=== PATIENT | male | born 1935 | race Caucasian/White ===

== ENCOUNTER 2017-03-04 18:52 | Observation (INO) | payer MEDICARE, OTHER ==
--- NOTE | 2017-03-04 20:11 | PCM.HP ---
History of Present Illness - Chief Complaint Chief Complaint: right knee pain History of Present Illness: is a 81 year old male pt of Dr. Jonah Tejeda with hx Jidlmdy-Muqsg-Dldlb disease who came in [facility] for pain control of R knee pain. He has a long history of knee pain and has recently been getting fluid drained from the knees intermittently; for th epast 3d he has had exacerbation of R knee pain particularly, with swelling and warmth of the knee. Pain is "30" out of 10. He takes no pain meds at home. His daughter, WHITNEY Angela, found out this evening that he has not slept x 2d and has not been able to get to the bathroom or up to shave x 2-3 days. She called me to discuss and we elected to directely admit him (transported via ambulance) for pain control and possible drainage by Dr. Tejeda in the morning. - Review of Systems Constitutional: Weight Loss (30 lb on recent diabetic diet.) Abdominal/Gastrointestinal: Nausea (with pain) Genitourinary Symptoms: Other (some urinary sx; treated for prostate cancer) Musculoskeletal: Arthralgias, Joint Pain, Joint Swelling Neurological: Dizziness (presyncope, intermittent) All Other Systems: Reviewed and Negative Medications & Allergies Home Medications: Home Medication List Felodipine [Felodipine ER] 10 mg PO DAILY 12/17/13 [History Confirmed 03/04/17] Lansoprazole [Prevacid] 30 mg PO DAILY 12/17/13 [History Confirmed 03/04/17] Benazepril HCl [Lotensin] 20 mg PO DAILY 12/18/13 [History Confirmed 03/04/17] Metoprolol Succinate 100 mg [Toprol Xl 100 MG] 100 mg PO DAILY 12/18/13 [ History Confirmed 03/04/17] Metformin HCl [Glucophage] 500 mg PO BID 03/04/17 [History Confirmed 03/04/17] Allergies/Adverse Reactions: Allergies Allergy/AdvReac Type Severity Reaction Status Date / Time penicillin G Allergy Mild Hives Verified 01/17/16 09:46 Sulfa (Sulfonamide Allergy Mild Hives Verified 01/17/16 09:46 Antibiotics) [Sulfa(Sulfonamide Antibiotics)] - Past Medical History Past Medical History: Yes Neurological History: Peripheral Neuropathy ENT History: No Pertinent History, Cataracts, Other (blind lefteye for years) Cardiac History: Hypertension Respiratory History: No Pertinent History Endocrine Medical History: No Pertinent History Musculoskelatal History: Arthritis GI Medical History: No Pertinent History History: No Pertinent History Pyscho-Social History: No Pertinent History Male Reproductive Disorders: Prostate Problems Comment: pacemaker - Past Surgical History Past Surgical History: Yes Neuro Surgical History: No Pertinent History Cardiac History: Cardiac Catheterization, Pacemaker Respiratory Surgery: No Pertinent History GI Surgical History: Cholecystectomy, Hernia Repair Genitourinary Surgical Hx: No Pertinent History Musculskeletal Surgical Hx: Orthopedic Surgery Male Surgical History: No Pertinent History Other Surgical History: tonsils - Social History Smoking Status: Never smoker Exposure to second hand smoke: No Alcohol: None Drug Use: none Significant Family History: no pertinent family hx - Physical Exam General Appearance: no apparent distress Neurologic Exam: alert, oriented x 3, cooperative, normal mood/affect Eye Exam: eyes nml inspection Ears, Nose, Throat Exam: moist mucous membranes Neck Exam: normal inspection, non-tender, mass (R submandibular soft mass approx 2.5x3 cm, nttp) Respiratory Exam: normal breath sounds, lungs clear, No crackles/rales, No rhonchi, No wheezing Cardiovascular Exam: regular rate/rhythm, normal heart sounds, No murmur Gastrointestinal/Abdomen Exam: soft, normal bowel sounds, No tenderness, No distention Extremity Exam: other (R knee grossly enlarged, quite warm, no erythema, ttp. L knee somewhat enlarged, somewhat warm, no erythema. no lesions bilat.) Skin Exam: normal color, warm, dry Results - Radiology Impressions Radiology Exams & Impressions: Radiology Procedures Category Date Time Status KNEE (1 OR 2 VIEW) Urgent Exams 03/04/17 Ordered Assessment/Plan (1) Knee pain Current Visit: Yes Status: Acute Assessment & Plan: Portable XR, check uric acid, cbc. Pain control tonight, starting with po meds (IV if necessary). suspect acute exacerbation of arthritic pain. 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 Code(s): E11.9 - TYPE 2 DIABETES MELLITUS WITHOUT COMPLICATIONS
[2017-03-04] MEDS ORDERED: MORPHINE SULFATE 10 MG/ML IV PRN (20:14)
[2017-03-04] MEDS ORDERED: ENOXAPARIN SODIUM SQ SCH (20:15)
[2017-03-04] MEDS: OXYCODONE-ACETAMINOPHEN 10-325 PO PRN (20:34)
[2017-03-04] MEDS: Sodium Chloride 0.9% 1000 ML 1,000 ML IV SCH (20:38)
[2017-03-04 20:39] LABS: BASOPHIL % 0.2 % (0.0-0.4); Eosinophil % 0.4 % (0.00-5.0); Granulocytes % 68.9 % (36.0-66.0); Lymphocytes % 20.5 % (24.0-44.0); Mean Cell Volume 96.9 fl (78-100); Mean Platelet Volume 9.8 fl (6-9.5); Platelet Count 139 K/mm3 (150-450); Red Blood Count 3.51 M/mm3 (4.1-5.6); Red Cell Distribution Width 12.7 % (11.5-14.0); White Blood Count 8.1 K/mm3 (4.0-10.5)
[2017-03-04 20:42] LABS: Mean Corpuscular Hemoglobin 32.4 pg (26-32)
[2017-03-04 21:00] LABS: ALBUMIN 3.6 g/dL (3.4-5.0); ALKALINE PHOSPHATASE 46 U/L (46-116); ANION GAP 12.6 MEQ/L (5-15); BLOOD UREA NITROGEN 31 mg/dL (9-20); CHLORIDE 101 mEq/L (98-107); Carbon Dioxide 28.4 mEq/L (21-32); Glucose 165 MG/DL (70-110); Potassium 3.1 mEq/L (3.5-5.1); SGOT/AST 12 U/L (15-37); SODIUM 139 mEq/L (136-145); Total Protein 6.8 gm/dL (6.4-8.2)
[2017-03-04] MEDS: Zofran 4 MG/2 ML VIAL IV PRN (21:01)
[2017-03-04 21:18] LABS: SGPT/ALT 13 U/L (12-78)
[2017-03-04] MEDS ORDERED: MORPHINE SULFATE 2 MG INJ ONE (22:22)
[2017-03-05] MEDS: OXYCODONE-ACETAMINOPHEN 10-325 PO PRN ×4 (01:26→21:14)
[2017-03-05] MEDS ORDERED: MEDICATION INTERVENTION MC SCH (07:15)
[2017-03-05] MEDS ORDERED: XYLOCAINE 1% HCL 20 ML MDV ONE (08:22)
--- NOTE | 2017-03-05 08:33 | XRAY ---
Indication: Knee pain and swelling. Comparison: None AP/crosstable lateral right knee demonstrates mild osteopenia, moderate tricompartmental degenerative changes, nonspecific suprapatellar effusion, fabella, and scattered vascular calcifications. No other bony, articular, or soft tissue abnormalities.
[2017-03-05 09:48] LABS: Bacteria FEW /HPF (NEGATIVE); Bilirubin NEGATIVE (NEGATIVE); Blood 250 Ery/ul (0-5); COMPLETE URINE MICROSCOPIC? YES; Collection Type VOID; Epithelial Cells RARE /HPF (FEW); Glucose NEGATIVE (NEGATIVE); Leukocyte Esterase TRACE (NEGATIVE); WBC 0-2 /HPF (0-5)
[2017-03-05] MEDS: Lotensin 10 MG PO SCH (09:49)
[2017-03-05] MEDS: Toprol Xl 100 MG PO SCH (09:49)
[2017-03-05] MEDS: Klor Con 10 MEQ PO SCH ×3 (09:49→21:14)
[2017-03-05] MEDS: Protonix 40MG Tablet PO SCH (09:49)
[2017-03-05] MEDS ORDERED: NON-FORMULARY ITEM (Benazepril Hcl [Lotensin] 20 MG) PO SCH (10:00)
[2017-03-05] MEDS ORDERED: NON-FORMULARY ITEM (Lansoprazole [Prevacid] 30 MG) PO SCH (10:00)
[2017-03-05] MEDS ORDERED: FELODIPINE 10 MG PO SCH (10:00)
[2017-03-05] MEDS ORDERED: PATIENT OWN MEDICATION PO SCH ×2 (12:00→17:00)
[2017-03-05] MEDS: Zofran 4 MG/2 ML VIAL IV PRN (13:49)
[2017-03-05] MEDS: Sodium Chloride 0.9% 1000 ML 1,000 ML IV SCH (13:57)
--- NOTE | 2017-03-05 18:10 | PCM.NOTE ---
Date and Time: 03/05/171804 Subjective Assessment: unable to walk severe pain in his knees for 2 days prior to presentation unable to bear weight or get out of bed light touch causes severe pain no fever no chills. I drained both his knees this am at 08:30 with 80 mL off left knee and 110 mL off the right knee. 40 mg of kenalog and 2 mL of lidocaine was placed in the right knee. Since then he has still had the pain but has been able to move them more. He was unable to get out of the bed without assist of 2 to the commode. He was not able to bear weight on the legs do to the pain. 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 Objective Exam General Appearance: no apparent distress, alert Neurologic Exam: alert, oriented x 3, cooperative, normal mood/affect, nml cerebellar function, sensation nml, No motor deficits Skin Exam: normal color, warm, dry Eye Exam: PERRL, EOMI, eyes nml inspection Ears, Nose, Throat Exam: normal ENT inspection, pharynx normal, moist mucous membranes Neck Exam: normal inspection, non-tender, supple, full range of motion Respiratory Exam: normal breath sounds, lungs clear, No respiratory distress Cardiovascular Exam: regular rate/rhythm, normal heart sounds Gastrointestinal/Abdomen Exam: soft, No tenderness, No mass Extremity Exam: other (bilateral knees tender to light palpation no redness mild warmth) Back Exam: normal inspection, normal range of motion, No CVA tenderness, No vertebral tenderness Male Genitalia Exam: deferred Rectal Exam: deferred OBJECTIVE DATA Vital Signs: Vital Signs - 24 hr Temp Pulse Resp BP Pulse Ox 03/05/17 15:50 98.3 F 58 L 18 161/71 91 L 03/05/17 14:58 93 L 03/05/17 11:48 98.1 F 61 18 169/72 93 L 03/05/17 10:39 96 03/05/17 07:12 98.2 F 61 18 172/77 97 03/05/17 06:42 98 03/05/17 03:55 98.5 F 62 18 119/55 99 03/04/17 23:41 98.7 F 62 19 111/56 94 L 03/04/17 22:35 69 16 93 L 03/04/17 22:15 93 L 03/04/17 20:19 98.9 F 66 19 105/51 92 L Oxygen-Last 24 hours O2 Percentage 2 Liters = 28% O2 Percentage 2 Liters = 28% O2 Percentage 2 Liters = 28% O2 Percentage 2 Liters = 28% Pain Assessment - Last Documented Pain Intensity 9 Pain Scale Used 0-10 Pain Scale Intake and Output: Intake & Output 03/03/17 03/04/17 03/05/17 03/06/17 11:59 11:59 11:59 11:59 Intake Total 963 Balance 963 Weight 85.757 kg 85.757 kg Lab Results: Accuchecks Date 03/05/17 Date 03/05/17 Date 03/05/17 Date 03/04/17 Time 16:30 Time 11:30 Time 07:30 Time 20:00 Accucheck Value: 226 Accucheck Value: 169 Accucheck Value: 139 Accucheck Value: 169 Lab Results-Last 24 Hours 03/04/17 03/04/17 03/05/17 Range/Units 20:30 20:30 02:21 WBC 8.1 (4.0-10.5) K/mm3 RBC 3.51 L (4.1-5.6) M/mm3 Hgb 11.4 L (12.5-18.0) gm/dl Hct 34.0 L (42-50) % MCV 96.9 (78-100) fl MCH 32.4 H (26-32) pg MCHC 33.5 (32-36) g/dl RDW 12.7 (11.5-14.0) % Plt Count 139 L (150-450) K/mm3 MPV 9.8 H (6-9.5) fl Gran % 68.9 H (36.0-66.0) % Lymphocytes % 20.5 L (24.0-44.0) % Monocytes % 10.0 (0.0-12.0) % Eosinophils % 0.4 (0.00-5.0) % Basophils % 0.2 (0.0-0.4) % Basophils # 0.02 (0-0.4) Sodium 139 (136-145) mEq/L Potassium 3.1 L (3.5-5.1) mEq/L Chloride 101 (98-107) mEq/L Carbon Dioxide 28.4 (21-32) mEq/L Anion Gap 12.6 (5-15) MEQ/L BUN 31 H (9-20) mg/dL Creatinine 1.16 (0.55-1.30) mg/dl Estimated GFR > 60 ML/MIN Glucose 165 H (70-110) MG/DL Hemoglobin A1c 5.7 (4.5-6.2) Uric Acid 8.2 H (3.5-7.2) mg/dL Calcium 9.4 (8.5-10.1) mg/dL Total Bilirubin 1.00 (0.2-1.0) mg/dL AST 12 L (15-37) U/L ALT 13 (12-78) U/L Alkaline Phosphatase 46 (46-116) U/L Serum Total Protein 6.8 (6.4-8.2) gm/dL Albumin 3.6 (3.4-5.0) g/dL Ur Collection Type Urine Color (YELLOW) Urine Appearance (CLEAR) Urine pH (5-6) Ur Specific [place] (1.005-1.025) Urine Protein (Negative) Urine Ketones (NEGATIVE) Urine Blood (0-5) Oscar/ul Urine Nitrite (NEGATIVE) Urine Bilirubin (NEGATIVE) Urine Urobilinogen (0-1) mg/dL Ur Leukocyte Esterase (NEGATIVE) Urine Microscopic RBC (0-2) /HPF Urine Microscopic WBC (0-5) /HPF Ur Epithelial Cells (FEW) /HPF Urine Bacteria (NEGATIVE) /HPF Urine Glucose (NEGATIVE) mg/dL Specimen Received 03/05/17 Range/Units 08:55 WBC (4.0-10.5) K/mm3 RBC (4.1-5.6) M/mm3 Hgb (12.5-18.0) gm/dl Hct (42-50) % MCV (78-100) fl MCH (26-32) pg MCHC (32-36) g/dl RDW (11.5-14.0) % Plt Count (150-450) K/mm3 MPV (6-9.5) fl Gran % (36.0-66.0) % Lymphocytes % (24.0-44.0) % Monocytes % (0.0-12.0) % Eosinophils % (0.00-5.0) % Basophils % (0.0-0.4) % Basophils # (0-0.4) Sodium (136-145) mEq/L Potassium (3.5-5.1) mEq/L Chloride (98-107) mEq/L Carbon Dioxide (21-32) mEq/L Anion Gap (5-15) MEQ/L BUN (9-20) mg/dL Creatinine (0.55-1.30) mg/dl Estimated GFR ML/MIN Glucose (70-110) MG/DL Hemoglobin A1c (4.5-6.2) Uric Acid (3.5-7.2) mg/dL Calcium (8.5-10.1) mg/dL Total Bilirubin (0.2-1.0) mg/dL AST (15-37) U/L ALT (12-78) U/L Alkaline Phosphatase (46-116) U/L Serum Total Protein (6.4-8.2) gm/dL Albumin (3.4-5.0) g/dL Ur Collection Type VOID Urine Color YELLOW (YELLOW) Urine Appearance CLEAR (CLEAR) Urine pH 5.0 (5-6) Ur Specific [place] 1.025 (1.005-1.025) Urine Protein TRACE (Negative) Urine Ketones NEGATIVE (NEGATIVE) Urine Blood 250 (0-5) Oscar/ul Urine Nitrite NEGATIVE (NEGATIVE) Urine Bilirubin NEGATIVE (NEGATIVE) Urine Urobilinogen NORMAL (0-1) mg/dL Ur Leukocyte Esterase TRACE (NEGATIVE) Urine Microscopic RBC 15-25 (0-2) /HPF Urine Microscopic WBC 0-2 (0-5) /HPF Ur Epithelial Cells RARE (FEW) /HPF Urine Bacteria FEW (NEGATIVE) /HPF Urine Glucose NEGATIVE (NEGATIVE) mg/dL Specimen Received 03/05/17 0855 Radiology Exams: Radiology Procedures Category Date Time Status KNEE (1 OR 2 VIEW) Urgent Exams 03/04/17 Completed Assessment/Plan (1) Knee pain Current Visit: Yes Status: Acute Qualifiers: Chronicity: acute Laterality: bilateral Qualified Code(s): M25.561 - Pain in right knee; M25.562 - Pain in left knee Assessment & Plan: suspected gout flair aspiration bilateral sent for culture, cell count and crystals and results still pending the fluid did not look purulent he has no fever and no elevated wbc he is unable to walk and unable to care for himself at home in current state and no one to provide 24 hour care in current state He was given 40 mg kenalog intrarticular on the right knee after the aspiration continue to monitor symptoms start naproxen 500 bid as well with protonix stomach protection he is on iv pain mediation due to severity of pain now start senna for constipation prevention PT eval and treat Code(s): M25.569 - PAIN IN UNSPECIFIED KNEE (2) Inability to ambulate due to knee Current Visit: Yes Status: Acute Code(s): R26.2 - DIFFICULTY IN WALKING, NOT ELSEWHERE CLASSIFIED (3) HTN (hypertension) Current Visit: Yes Status: Chronic Qualifiers: Hypertension type: essential hypertension Qualified Code(s): I10 - Essential (primary) hypertension Code(s): I10 - ESSENTIAL (PRIMARY) HYPERTENSION (4) Diabetes mellitus Current Visit: Yes Status: Chronic Qualifiers: Diabetes mellitus type: type 2 Diabetes mellitus complication status: without complication Diabetes mellitus longterm insulin 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
[2017-03-05] MEDS: Naprosyn 500 MG PO SCH ×2 (18:17→19:16)
[2017-03-05] MEDS: NovoLOG Insulin SQ PRN (21:39)
[2017-03-05] MEDS ORDERED: ENOXAPARIN SODIUM SQ SCH (22:00)
[2017-03-05] MEDS ORDERED: Senokot-S Tablet PO SCH (22:00)
[2017-03-06] MEDS: Sodium Chloride 0.9% 1000 ML 1,000 ML IV SCH (00:23)
[2017-03-06 05:36] LABS: Mean Cell Volume 97.1 fl (78-100); Mean Corpuscular Hemoglobin 32.6 pg (26-32); Mean Platelet Volume 10.6 fl (6-9.5); Platelet Count 130 K/mm3 (150-450); Red Cell Distribution Width 12.4 % (11.5-14.0); White Blood Count 6.7 K/mm3 (4.0-10.5)
[2017-03-06 05:54] LABS: ANION GAP 11.7 MEQ/L (5-15); BLOOD UREA NITROGEN 39 mg/dL (9-20); CHLORIDE 103 mEq/L (98-107); Glucose 153 MG/DL (70-110); Potassium 4.3 mEq/L (3.5-5.1); SODIUM 140 mEq/L (136-145)
[2017-03-06 06:59] VITALS: O2SAT 94
[2017-03-06 08:17] LABS: Platelet Estimate NORMAL (NORMAL); Total Cells Counted 100
--- NOTE | 2017-03-06 08:23 | OP ---
SURGERY DATE/TIME 03/05/2017829 PROCEDURE: Bilateral knee aspiration. SURGEON: Dr. Chalo Tejeda INDICATIONS: Bilateral knee acute swelling and pain two days onset. Informed consent was obtained from the patient including risk of infection, bleeding and pain. DESCRIPTION OF PROCEDURE AND FINDINGS: The left knee was cleaned with alcohol and subcutaneous lidocaine 1 ml was used for local anesthesia. . Iodine was used in triplicate to clean the area. A 21 gauge 1.5 inch needle with 25 cc syringe was used for insertion in the superior lateral to aspirate from the suprapatellar space. There was immediate return of yellow synovial fluid. 80 cc in total was withdrawn from this knee. The fluid was sent in sterile specimen cup for culture and cell count differential and crystals. He tolerated the procedure well with no complications. The right knee was then prepped with alcohol and then subcutaneous lidocaine 1 ml was used for local anesthesia. Iodine was used in triplicate to clean the area. A 21 gauge 1.5 inch new needle was used for insertion to superior lateral to patellar space with rapid return of yellow synovial fluid with a total of 110 ml removed with no complication and sent for cell count, culture, differential and crystals as well in separate sterile specimen cup. The needle was then exchanged and 2 cc of lidocaine and 40 mg of Kenalog were injected to the joint space. The patient tolerated the procedure well and no immediate complications. There was no blood loss.
[2017-03-06] MEDS: Lotensin 10 MG PO SCH (08:35)
[2017-03-06] MEDS: Naprosyn 500 MG PO SCH (08:35)
[2017-03-06] MEDS: Klor Con 10 MEQ PO SCH ×2 (08:35→14:11)
[2017-03-06] MEDS: Toprol Xl 100 MG PO SCH (08:35)
[2017-03-06] MEDS: Protonix 40MG Tablet PO SCH (08:36)
[2017-03-06 10:46] LABS: Erythrocyte Sedimentation Rate 52 mm/hr (0-15)
[2017-03-06] MEDS: NovoLOG Insulin SQ PRN (11:53)
[2017-03-06 11:58] VITALS: BP 141/65; PULSE 62
--- NOTE | 2017-03-07 07:42 | PCM.DS ---
Discharge Summary Date of Admission: 03/04/17 19:27 Date of Discharge: 03/06/17 Admitting Physician: CORNELL MORENO Primary Care Provider: KAYLENE TSE Allergies Allergies penicillin G Allergy (Mild, Verified 01/17/16 09:46) [facility] Sulfa (Sulfonamide Antibiotics) [Sulfa(Sulfonamide Antibiotics)] Allergy (Mild, Verified 01/17/16 09:46) [facility] Summary - Hospital Course Hospital Course: Mr. Meyer lives at home with his and was unable to ambulate, or transfer for 2 days due to pain in the knee on the right. he did not eat or get up to get to the restroom. His daughter called Dr. Moreno who direct admitted him to the hospital on 03/04/17. He required significant narcotics to control his pain and was unable to bear weight on his legs and any movement in the bed was incredibly painful. he had no fever or redness did have some warmth in the knees bilaterally. I evaluated him the am of 03/05 and his knees had very large effusions he had remained afebrile and the knees were very tender to palpation. They were both aspirated and sent for culture, cell count and crystals. The right knee had 80cc drained and the left 110 cc drained of clear normal appearing synovial fluid. the right knee was then injected with 40 mg of kenalog on 03/05. He was still requiring assist of 2 on 03/05 but on 03/06 woke up with no pain in the knees was able to bear weight and transfer with minimal assistance. He was discharged home with his daughter who is working on living arrangments in the intermediate. the culture is no growth of the knee but the cell count and crystals is still pending. - Vitals & Intake/Output Vital Signs: Vital Signs Temperature 99.0 F 03/06/17 11:58 Pulse Rate 62 03/06/17 11:58 Respiratory Rate 18 03/06/17 11:58 Blood Pressure 141/65 03/06/17 11:58 O2 Sat by Pulse Oximetry 94 L 03/06/17 11:58 Oxygen-Last Documented O2 Percentage 2 Liters = 28% Intake & Output: Intake & Output 03/04/17 03/05/17 03/06/17 03/07/17 11:59 11:59 11:59 11:59 Intake Total 548 1016 Output Total 450 Balance 548 566 Weight 85.757 kg 85.757 kg - Lab Result Diagrams: 03/06/17 05:10 03/06/17 05:10 Lab Results-Last 24 Hrs: Accuchecks Accucheck Value: 216 Lab Results-Last 24 Hours 03/06/17 Range/Units 05:10 Segmented Neutrophils 79 H (36.-66.) % Lymphocytes (Manual) 16 L (24-44) % Monocytes (Manual) 5 (0.0-12.0) % Differential Comment NORMAL Platelet Estimate NORMAL (NORMAL) ESR 52 H (0-15) mm/hr Micro Results-Entire Visit: Microbiology 03/05/17 08:46 - Final Urine, Void <10K NORMAL SKIN HOLLIE PROBABLE SKIN CONTAMINANT 03/05/17 09:50 Gram Stain - Final Synovial Fluid Wound Culture - Preliminary NO GROWTH TO DATE 03/05/17 09:45 Gram Stain - Final Synovial Fluid Wound Culture - Preliminary NO GROWTH TO DATE Accuchecks Accucheck Value: 216 - Procedures and Test Procedures and Tests throughout Hospitalization: Therapy Orders & Screens 03/04/17 21:01 PT Screen per Nursing Assess Comment: Protocol Order Physician Instructions: Greater than 3 points order PT Admission Screenin Reason For Exam: Triggered on Admission Diagnosis: rt knee pain Open Wound/Cellutlitis/Pressure Ulcers: No Acute Fx/ORIF/Change in wt bearing status: No Severe MUSCULOSKELETAL pain: Yes ADL Dysfunction: No Acute CVA w/Hemiparesis/Hemiplegia: No Decreased Functional Mobility/Strength: Yes Sprain/Strain: No Acute Post-op Mobility Dysfunction: No Total Points: 6 03/04/17 22:33 Oxygen NASAL CANNULA 2 lpm Comment: 2LNC TO KEEP O2 SATURATION >92% Diagnosis: rt knee pain 03/05/17 08:56 OT Screen per Nursing Assess ONCE Comment: Protocol Order Physician Instructions: Greater than 3 points order OT Admission Screening Reason For Exam: Triggered on Admission Diagnosis: rt knee pain Open Wound/Cellutlitis/Pressure Ulcers: No Acute Fx/ORIF/Change in wt bearing status: No Severe MUSCULOSKELETAL pain: Yes ADL Dysfunction: No Acute CVA w/Hemiparesis/Hemiplegia: No Decreased Functional Mobility/Strength: Yes Sprain/Strain: No Acute Post-op Mobility Dysfunction: No Total Points: 6 03/05/17 15:05 PT Eval & Treat (MD Order) ROUTINE Evaluate: Yes Treat: Yes Reason for Eval:: knee pain - inability to walk Diagnosis: rt knee pain Discharge Exam General Appearance: no apparent distress Neurologic Exam: alert, oriented x 3, cooperative Skin Exam: warm, dry, No rash Eye Exam: pale conjunctivae, No scleral icterus Ears, Nose, Throat Exam: moist mucous membranes Neck Exam: non-tender, supple Respiratory Exam: lungs clear Cardiovascular Exam: regular rate/rhythm, normal heart sounds, edema (trace omayra LE) Extremity Exam: joint swelling, tenderness (bilateral knees still with large effusions no warmth or redness and nonpainful to palpation today and has improved range of motion) Final Diagnosis/Problem List - Final Discharge Diagnosis/Problem (1) Knee pain Status: Acute Assessment & Plan: suspected gout flair improved with the aspiration and kenalog injection await crystal study and after improvement f/u in office to start allopurinol therapy (2) Inability to ambulate due to knee Status: Acute (3) HTN (hypertension) Status: Chronic (4) Diabetes mellitus Status: Chronic - Discharge Disposition: Home, Self-Care Condition: Good Prescriptions: No Action Felodipine [Felodipine ER] 10 mg PO DAILY Lansoprazole [Prevacid] 30 mg PO DAILY Benazepril HCl [Lotensin] 20 mg PO DAILY Metoprolol Succinate 100 mg [Toprol Xl 100 MG] 100 mg PO DAILY Metformin HCl [Glucophage] 500 mg PO BID Instructions: Gout, Knee Pain Follow up with: KAYLENE TSE [Primary Care Provider] - 03/13/17 3:15 pm Forms: Discharge Instructions, Patient Portal Information
[2017-03-07 10:04] LABS: Body Fluid Type? Synovial Fluid
[2017-03-07 10:04] LABS: Body Fluid Type? Synovial Fluid
== END 2017-03-06 15:25 | disposition home or self-care (01) ==
LOC: MED SURG 19:27
PROVIDERS: ADMIT Family Medicine; ATTEND Family Medicine
PROC: 0S9D3ZZ Drainage of Left Knee Joint, Percutaneous Approach (ICD-10-PCS; principal; 2017-03-05)
PROC: 0S9C3ZZ Drainage of Right Knee Joint, Percutaneous Approach (ICD-10-PCS; 2017-03-05)
DX: M25.561 Pain in right knee (principal); M25.562 Pain in left knee; R26.2 Difficulty in walking, not elsewhere classified; I10 Essential (primary) hypertension; E11.9 Type 2 diabetes mellitus without complications; Z79.4 Long term (current) use of insulin; Z79.899 Other long term (current) drug therapy; G62.9 Polyneuropathy, unspecified; Z95.0 Presence of cardiac pacemaker
CPT/HCPCS: 36415; 73560; 80048; 80053; 81000; 82962; 83036; 84550; 85025; 85652; 87070; 87086; 89050; 89051; 89060; 93268; 94762; G0378; J1650; J2270; J2405; A9270-GY

== ENCOUNTER 2017-07-07 16:50 | Emergency (ER) | payer MEDICARE, OTHER ==
[2017-07-07] MEDS ORDERED: SUBLIMAZE 100 MCG/2 ML IV ONE (17:04)
--- NOTE | 2017-07-07 17:10 | ERPHSYRPT ---
- History of Present Illness Source: patient, EMS Patient Subjective Stated Complaint: pt states yesterday he had lower abd pain but today it is back pain, no fall or injury, no nausea or vomiting, had bm today Triage Nursing Assessment: pt arrived per ambulance, ems states he was up and walking at house, alert, resp easy, skin w/d pink, moves all ext well Timing/Duration: yesterday Back Pain Location: lumbar spine Severity of Pain-Max: severe Severity of Pain-Current: moderate Hx Tetanus, Diphtheria Vaccination/Date Given: Yes (2014) Hx Influenza Vaccination/Date Given: No Hx Pneumococcal Vaccination/Date Given: No Immunizations Up to Date: Yes <JASEN GONZALEZ - Last Filed: 07/07/17 18:08> <ADRIANA GASTON - Last Filed: 07/07/17 20:04> - History of Present Illness Time Seen by Provider: 07/07/17 16:54 Physician History: CC: low back pain Hx: 81 y/o patient of Dr Devine brought to ER with low back pain, worse since last night. Started with some low abd pain and some constipation. No fever or chills. Normal urination. No hx of AAA. He has a pacemaker. He has HHC. and daughter en route to the hospital. He has hx of gout. Pain is aching, sharp. No hematuria noted. Not apparently on blood thinners. (JASEN GONZALEZ) Allergies/Adverse Reactions: penicillin G Allergy (Mild, Verified 07/07/17 17:07) Hives Sulfa (Sulfonamide Antibiotics) [Sulfa(Sulfonamide Antibiotics)] Allergy (Mild, Verified 07/07/17 17:07) Hives Home Medications: Felodipine [Felodipine ER] 10 mg PO DAILY 12/17/13 [History] Lansoprazole [Prevacid] 30 mg PO DAILY 12/17/13 [History] Benazepril HCl [Lotensin] 20 mg PO DAILY 12/18/13 [History] Metoprolol Succinate 100 mg [Toprol Xl 100 MG] 100 mg PO DAILY 12/18/13 [ History] Metformin HCl [Glucophage] 500 mg PO BID 03/04/17 [History] - Review of Systems Constitutional: No Fever, No Chills Cardiac: No Chest Pain Abdominal/Gastrointestinal: Abdominal Pain, No Nausea, No Vomiting, No Diarrhea Genitourinary Symptoms: No Dysuria, No Hematuria, No Flank Pain Musculoskeletal: Back Pain, No Fall, No Injury, No Joint Pain Skin: No Rash Neurological: No Focal Weakness, No Headache All Other Systems: Reviewed and Negative <JASEN GONZALEZ - Last Filed: 07/07/17 18:08> - Past Medical History Pertinent Past Medical History: Yes Neurological History: Peripheral Neuropathy ENT History: No Pertinent History, Cataracts, Other Cardiac History: Hypertension Respiratory History: No Pertinent History Endocrine Medical History: No Pertinent History Musculoskeletal History: Arthritis GI Medical History: No Pertinent History History: No Pertinent History Psycho-Social History: No Pertinent History Male Reproductive Disorders: Prostate Problems Other Medical History: pacemaker - Past Surgical History Past Surgical History: Yes Neuro Surgical History: No Pertinent History Cardiac: Cardiac Catheterization, Pacemaker Respiratory: No Pertinent History Gastrointestinal: Cholecystectomy, Hernia Repair Genitourinary: No Pertinent History Musculoskeletal: Orthopedic Surgery Male Surgical History: No Pertinent History Other Surgical History: tonsils - Social History Smoking Status: Former smoker Exposure to second hand smoke: No Alcohol Use: None Drug Use: none Patient Lives Alone: No Significant Family History: no pertinent family hx <GONZALEZJASEN - Last Filed: 07/07/17 18:08> - Physical Exam General Appearance: alert Eye Exam: PERRL/EOMI Ears, Nose, Throat Exam: normal ENT inspection, moist mucous membranes Neck Exam: normal inspection, supple Respiratory Exam: normal breath sounds Cardiovascular Exam: regular rate/rhythm Gastrointestinal Exam: soft, tenderness (mild suprapubic) Male Genetalia Exam: normal genitalia Back Exam: normal inspection, No vertebral tenderness Extremity Exam: normal inspection Neurologic Exam: alert, oriented x 3, cooperative, 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 tested, sensation nml, No motor deficits Skin Exam: warm, dry, No rash SpO2 Interpretation: normal SpO2: 96 Oxygen Delivery: Room Air <CARLOSBRAVO - Last Filed: 07/07/17 18:08> - Nursing Vital Signs Nursing Vital Signs: Initial Vital Signs Temperature 99.8 F 07/07/17 16:51 Pulse Rate 73 07/07/17 16:51 Respiratory Rate 16 07/07/17 16:51 Blood Pressure 137/61 07/07/17 16:51 O2 Sat by Pulse Oximetry 96 07/07/17 16:51 Pain Scale Pain Intensity [Back] 5 Pain Intensity 3 - Course Nursing assessment & vital signs reviewed: Yes EKG Interpreted by Me: RATE (70 pacemaker rhythm) <JASEN GONZALEZ - Last Filed: 07/07/17 18:08> - CT Exams Abdomen/Pelvis CT Interpretation: Other (large hiatal hernia, and small umbilical hernia, fecal stasis, mild diverticulitis, no obstruction.) <ADRIANA GASTON - Last Filed: 07/07/17 20:04> Ordered Tests: Active Orders 24 hr Category Date Time Status Clean Catch Urine Specimen STAT Care 07/07/17 17:04 Active EKG-ER Only STAT Care 07/07/17 17:04 Active IV Insertion STAT Care 07/07/17 17:04 Active ABDOMEN AND PELVIS W/0 CONTRAS [CT] Stat Exams 07/07/17 17:05 Taken CBC W DIFF Stat Lab 07/07/17 17:38 Completed CMP Stat Lab 07/07/17 17:38 Completed CULTURE,URINE Stat Lab 07/07/17 17:50 Received LIPASE Stat Lab 07/07/17 17:38 Completed UA W/ MICROSCOPIC Stat Lab 07/07/17 17:50 Completed Medication Summary Discontinued Medications Generic Name Dose Route Start Last Admin Trade Name Freq PRN Reason Stop Dose Admin Fentanyl Citrate 25 mcg 07/07/17 17:04 07/07/17 17:34 Sublimaze 100 Mcg/2 Ml IV 07/07/17 17:05 25 mcg STAT ONE Administration Fentanyl Citrate Confirm 07/07/17 17:31 Sublimaze 100 Mcg/2 Ml Administered 07/07/17 17:32 Dose 100 mcg .ROUTE .STK-MED ONE Potassium Chloride 20 meq 07/07/17 19:46 07/07/17 19:55 Potassium Chloride 20 Meq Powder For Oral Rahel PO 07/07/17 19:47 20 meq NOW ONE Administration Potassium Chloride Confirm 07/07/17 19:51 Potassium Chloride 20 Meq Powder For Oral Rahel Administered 07/07/17 19:52 Dose 20 meq .ROUTE .STK-MED ONE Lab/Rad Data: Laboratory Result Diagrams 07/07/17 17:38 07/07/17 17:38 Laboratory Results 07/07/17 07/07/17 07/07/17 Range/Units 17:50 17:38 17:38 WBC 8.4 (4.0-10.5) K/mm3 RBC 3.50 L (4.1-5.6) M/mm3 Hgb 11.3 L (12.5-18.0) gm/dl Hct 34.0 L (42-50) % MCV 97.1 (78-100) fl MCH 32.2 H (26-32) pg MCHC 33.2 (32-36) g/dl RDW 12.8 (11.5-14.0) % Plt Count 178 (150-450) K/mm3 MPV 9.8 H (6-9.5) fl Gran % 75.1 H (36.0-66.0) % Lymphocytes % 16.3 L (24.0-44.0) % Monocytes % 7.3 (0.0-12.0) % Eosinophils % 0.8 (0.00-5.0) % Basophils % 0.5 (0.0-0.4) % Basophils # 0.04 (0-0.4) Sodium 139 (136-145) mEq/L Potassium 3.0 L* (3.5-5.1) mEq/L Chloride 102 (98-107) mEq/L Carbon Dioxide 27.1 (21-32) mEq/L Anion Gap 12.5 (5-15) MEQ/L BUN 22 H (9-20) mg/dL Creatinine 1.22 (0.55-1.30) mg/dl Estimated GFR > 60 ML/MIN Glucose 182 H (70-110) MG/DL Calcium 8.8 (8.5-10.1) mg/dL Total Bilirubin 0.40 (0.2-1.0) mg/dL AST 13 L (15-37) U/L ALT 20 (12-78) U/L Alkaline Phosphatase 67 (46-116) U/L Serum Total Protein 6.5 (6.4-8.2) gm/dL Albumin 3.1 L (3.4-5.0) g/dL Lipase 201 (73-393) U/L Ur Collection Type VOID Urine Color YELLOW (YELLOW) Urine Appearance CLEAR (CLEAR) Urine pH 5.0 (5-6) Ur Specific [place] 1.020 (1.005-1.025) Urine Protein TRACE (Negative) Urine Ketones NEGATIVE (NEGATIVE) Urine Blood 50 (0-5) Oscar/ul Urine Nitrite NEGATIVE (NEGATIVE) Urine Bilirubin NEGATIVE (NEGATIVE) Urine Urobilinogen NORMAL (0-1) mg/dL Ur Leukocyte Esterase NEGATIVE (NEGATIVE) Urine Microscopic RBC 2-5 (0-2) /HPF Urine Microscopic WBC 2-5 (0-5) /HPF Ur Epithelial Cells MODERATE (FEW) /HPF Urine Bacteria MODERATE (NEGATIVE) /HPF Urine Mucus MANY (NEGATIVE) /HPF Urine Culture Reflexed YES (NO) Urine Glucose NEGATIVE (NEGATIVE) mg/dL Specimen Received 07/07/17 0824 <JASEN GONZALEZ - Last Filed: 07/07/17 18:08> - Progress Progress: improved Discussed with Dr.: Sybil Will see patient in: office <ADRIANA GASTON - Last Filed: 07/07/17 20:04> - Progress Progress Note: 07/07/17 17:[address] to rule out AAA or renal stone disease. 07/07/17 18:09 CT and labs pending. and daughter at bedside. Report to Dr Gaston for further care and disposition. (JASEN GONZALEZ) 07/07/17 19:57 I discussed the results with patient and his family, they agreed to take him home and follow up with Dr Devine in his office this week. Dr Devine was also called, informed about the results, he also agreed with the plan to discharge him and treat as outpatient. Pt has been afebrile and stable, without severe pain or distress. (ADRIANA GASOTN) <JASEN GONZALEZ - Last Filed: 07/07/17 18:08> - Departure Time of Disposition: 19:58 Departure Disposition: Home Critical Care Time: No <ADRIANA GASTON - Last Filed: 07/07/17 20:04> - Departure Clinical Impression: Diverticulitis, Hypokalemia Condition: Stable Referrals: KAYLENE TSE [Primary Care Provider] - Instructions: Low Back Pain, Diverticulitis, Hypokalemia Additional Instructions: Rest x 2-3 days, apply moist heat to back, continue liquid diet, return if severe pain, vomiting, fever> 101 F! Follow up with PCP in 2-3 days! Prescriptions: Tramadol HCl [Ultram 50 mg Tablet] 50 mg PO Q6HPRN PRN 5 Days #10 tablet PRN Reason: Pain Levofloxacin [Levaquin] 1 tab PO DAILY 10 Days #10 tablet Metronidazole 500 mg [Flagyl 500 MG] 500 mg PO TID 10 Days #30 tablet
[2017-07-07] MEDS ORDERED: SUBLIMAZE 100 MCG/2 ML ONE (17:31)
[2017-07-07 17:43] LABS: BASOPHIL % 0.5 % (0.0-0.4); Eosinophil % 0.8 % (0.00-5.0); Granulocytes % 75.1 % (36.0-66.0); Lymphocytes % 16.3 % (24.0-44.0); Mean Cell Volume 97.1 fl (78-100); Mean Platelet Volume 9.8 fl (6-9.5); Monocytes % 7.3 % (0.0-12.0); Platelet Count 178 K/mm3 (150-450); Red Cell Distribution Width 12.8 % (11.5-14.0); White Blood Count 8.4 K/mm3 (4.0-10.5)
[2017-07-07 17:44] LABS: Mean Corpuscular Hemoglobin 32.2 pg (26-32)
[2017-07-07 18:09] LABS: Collection Type VOID
[2017-07-07 18:10] LABS: ADD URINE CULTURE? YES (NO); Bacteria MODERATE /HPF (NEGATIVE); Bilirubin NEGATIVE (NEGATIVE); Blood 50 Ery/ul (0-5); COMPLETE URINE MICROSCOPIC? YES; Epithelial Cells MODERATE /HPF (FEW); Glucose NEGATIVE (NEGATIVE); Leukocyte Esterase NEGATIVE (NEGATIVE); Mucus MANY /HPF (NEGATIVE)
[2017-07-07 18:15] LABS: ALBUMIN 3.1 g/dL (3.4-5.0); ALKALINE PHOSPHATASE 67 U/L (46-116); ANION GAP 12.5 MEQ/L (5-15); BLOOD UREA NITROGEN 22 mg/dL (9-20); CHLORIDE 102 mEq/L (98-107); Carbon Dioxide 27.1 mEq/L (21-32); Glucose 182 MG/DL (70-110); LIPASE 201 U/L (73-393); SGOT/AST 13 U/L (15-37); SGPT/ALT 20 U/L (12-78); SODIUM 139 mEq/L (136-145); Total Protein 6.5 gm/dL (6.4-8.2)
[2017-07-07 18:58] VITALS: O2SAT 94
[2017-07-07] MEDS ORDERED: POTASSIUM CHLORIDE 20 MEQ POWDER FOR ORAL SOL PO ONE (19:46)
[2017-07-07] MEDS ORDERED: POTASSIUM CHLORIDE 20 MEQ POWDER FOR ORAL SOL ONE (19:51)
[2017-07-07] MEDS ORDERED: Levofloxacin 250MG Tablet PO ONE (19:55)
[2017-07-07] MEDS ORDERED: ULTRAM 50 MG PO ONE (19:55)
[2017-07-07] MEDS ORDERED: Flagyl 500 MG PO ONE (19:55)
[2017-07-07 19:58] VITALS: BP 128/62; PULSE 79
[2017-07-07] MEDS ORDERED: Levofloxacin 250MG Tablet ONE (20:00)
[2017-07-07] MEDS ORDERED: ULTRAM 50 MG ONE (20:00)
[2017-07-07] MEDS ORDERED: Cipro 500 MG ONE (20:00)
[2017-07-07] MEDS ORDERED: Flagyl 500 MG ONE (20:02)
--- NOTE | 2017-07-08 08:37 | XRAY ---
Indication: Abdominal pain. Multiple contiguous axial images obtained through the abdomen and pelvis without contrast as ordered. Comparison: None Lung bases demonstrates mild bibasilar atelectasis/scarring and right posterior gutter calcified granuloma. Heart is not enlarged. There is a moderate-sized hiatal hernia with partial intrathoracic stomach. Noncontrasted stomach and bowel loops appear nonobstructed. Moderate diffuse scattered colonic fecal debris throughout. Scattered sigmoid diverticulosis with minimal distal stranding favoring diverticulitis. No free fluid/air. Calcified splenic granulomas and previous cholecystectomy. There are multiple hepatic cysts, largest 6 cm. Also multiple bilateral renal cysts, largest right kidney measuring 12 cm. Nonobstructing right renal micro-calculi, largest 7 mm. Remaining liver, pancreas, spleen, adrenal glands, kidneys, ureters, and bladder appear unremarkable for noncontrast exam. Moderate aortoiliac calcifications without AAA. Osseous structures demonstrates moderate/advanced multilevel degenerative spondylosis. 6 mm L4 spondylolisthesis. Tiny fatty umbilical hernia. Impression: 1. Sigmoid diverticulosis. Small focus of minimal/early diverticulitis. 2. Fecal stasis without obstruction. 3. Incidental hiatal hernia with partial intrathoracic stomach, hepatic cysts, bilateral renal cysts, nonobstructing right renal micro-calculi, and tiny fatty umbilical hernia. 4. Multilevel degenerative spondylosis and L4 grade [address] DI 22.13
== END 2017-07-07 20:33 | disposition home or self-care (01) ==
LOC: ED 16:50
DX: K57.92 Diverticulitis of intestine, part unspecified, without perforation or abscess without bleeding (principal); E87.6 Hypokalemia; Z95.810 Presence of automatic (implantable) cardiac defibrillator; Z79.899 Other long term (current) drug therapy; I10 Essential (primary) hypertension
CPT/HCPCS: 36000; 36415; 74176; 80053; 81000; 83690; 85025; 87086; 93005; 96374; 99284; J3010; A9270-GY

== ENCOUNTER 2018-06-19 09:37 | Inpatient (IN) | payer MEDICARE, OTHER ==
[2018-06-19] MEDS ORDERED: Vancomycin 1GM/ Ns 250ML*** 250 ML IV ONE (18:09)
[2018-06-19] MEDS ORDERED: ROCEPHIN 1 Gm-D5w 50 ml Bag** 1 G/50 ML IVPB IV ONE (18:09)
[2018-06-19] MEDS ORDERED: PHARMACY DOSING REQUIRED: VANCOMYCIN IV ONE (18:14)
[2018-06-19 18:21] LABS: BASOPHIL % 0.6 % (0.0-0.4); Basophil (Absolute #) 0.05 (0-0.4); Eosinophil % 2.4 % (0.00-5.0); Granulocyte Absolute (ANC) 5.87 (1.4-6.9); Granulocytes % 71.2 % (36.0-66.0); Hematocrit 35.8 % (42-50); Hemoglobin 11.7 gm/dl (12.5-18.0); Lymphocyte (Absolute #) 1.46 (1.0-4.6); Lymphocytes % 17.7 % (24.0-44.0); Mean Cell Volume 96.5 fl (78-100); Mean Corpuscular Hemoglobin 31.5 pg (26-32); Mean Corpuscular Hgb Concent. 32.7 g/dl (32-36); Mean Platelet Volume 9.9 fl (6-9.5); Monocyte (Absolute #) 0.67 (0.0-1.3); Monocytes % 8.1 % (0.0-12.0); Platelet Count 241 K/mm3 (150-450); Red Blood Count 3.71 M/mm3 (4.1-5.6); Red Cell Distribution Width 12.4 % (11.5-14.0); White Blood Count 8.3 K/mm3 (4.0-10.5)
[2018-06-19 18:30] LABS: ALBUMIN 4.1 g/dL (3.5-5.0); ALKALINE PHOSPHATASE 73 U/L (38-126); ANION GAP 14.8 MEQ/L (5-15); BLOOD UREA NITROGEN 32 mg/dL (9-20); CHLORIDE 103 mmol/L (98-107); Calcium 9.5 mg/dL (8.4-10.2); Carbon Dioxide 26 mmol/L (22-30); Creatinine 1 0.84 mg/dL (0.66-1.25); Glucose 135 mg/dL (74-106); NT PRO BNP 1120 pg/mL (0-1800); Potassium 4.2 mmol/L (3.5-5.1); SGOT/AST 26 U/L (17-59); SGPT/ALT 22 U/L (0-50); SODIUM 140 mmol/L (137-145); Total Protein 7.1 g/dL (6.3-8.2)
[2018-06-19] MEDS ORDERED: VANCOCIN 1 GM VIAL*** 1 GM in Sodium Chloride 0.9% 250 ML 250 ML IV ONE (18:30)
[2018-06-19 19:02] LABS: Erythrocyte Sedimentation Rate 73 mm/hr (0-15)
[2018-06-19] MEDS ORDERED: ROCEPHIN 1 Gm-D5w 50 ml Bag** 1 G/50 ML IVPB IV SCH (19:07)
[2018-06-19] MEDS: MORPHINE SULFATE 2 MG INJ IV PRN ×2 (19:43→23:49)
[2018-06-19 20:36] LABS: Appearance CLEAR (CLEAR); Bilirubin NEGATIVE (NEGATIVE); Blood SMALL Ery/ul (0-5); Glucose NEGATIVE (NEGATIVE); Ketones NEGATIVE (NEGATIVE); Leukocyte Esterase NEGATIVE (NEGATIVE); Nitrite NEGATIVE (NEGATIVE); Protein,Urine Dip NEGATIVE (Negative); Specific Gravity 1.016 (1.005-1.025); Urobilinogen NEGATIVE mg/dL (0-1)
[2018-06-19] MEDS: DELTASONE 20 MG PO SCH (21:55)
[2018-06-19] MEDS: Klor Con 10 MEQ PO SCH (21:55)
[2018-06-19] MEDS: DESYREL 50 MG PO SCH (21:56)
[2018-06-19] MEDS: ELIQUIS 2.5 MG TABLET PO SCH (21:56)
[2018-06-19] MEDS: MAG-OX 400 PO SCH (21:57)
[2018-06-20] MEDS: VANCOCIN 1 GM VIAL*** 1 GM in Sodium Chloride 0.9% 250 ML 250 ML IV SCH ×2 (08:28→20:44)
[2018-06-20] MEDS: Klor Con 10 MEQ PO SCH ×2 (08:29→20:48)
[2018-06-20] MEDS: MAG-OX 400 PO SCH ×2 (08:29→20:49)
[2018-06-20] MEDS: DELTASONE 20 MG PO SCH ×2 (08:29→20:49)
[2018-06-20] MEDS: ELIQUIS 2.5 MG TABLET PO SCH ×2 (08:29→20:49)
--- NOTE | 2018-06-20 09:19 | XRAY ---
Indication: Lateral wrist pain. Limited range of motion. No known injury. Comparison: None 3 views of the right wrist demonstrates osteopenia, radiocarpal joint space narrowing, mild degenerative changes of the 1st metacarpal multangular articulation, and scattered vascular calcifications. No other bony, articular, or soft tissue abnormalities.
--- NOTE | 2018-06-20 09:19 | XRAY ---
Indication: Short of breath. Comparison: July 09, 2017. Portable chest unchanged again demonstrating cardiomegaly, left-sided dual-lead pacemaker, and left base discoid atelectasis/scarring. No new/acute cardiopulmonary abnormalities. Bony thorax intact again with mild osteopenia and degenerative changes.
--- NOTE | 2018-06-20 09:40 | PCM.NOTE ---
Date and Time: 06/20/18 0937 Subjective Assessment: patient denies any new complaints, right wrist swelling and warmth have dramatically improved according to patient. Objective Exam General Appearance: no apparent distress, alert Skin Exam: normal color, warm, dry Respiratory Exam: normal breath sounds Cardiovascular Exam: regular rate/rhythm, normal heart sounds Gastrointestinal/Abdomen Exam: soft, No tenderness, No mass Extremity Exam: swelling (2+ pitting edema BLE with venous stasis changes, erythema with open area at base of toes on omayra feet erythema and warmth present. ) OBJECTIVE DATA Vital Signs: Vital Signs - 24 hr Temp Pulse Resp BP Pulse Ox 06/20/18 08:00 98.4 F 60 18 148/65 93 L 06/20/18 04:00 98.3 F 61 20 139/63 93 L 06/20/18 00:00 98.6 F 60 17 133/61 93 L 06/19/18 20:02 98.9 F 66 20 171/76 96 06/19/18 18:48 98.9 F 66 20 171/76 96 06/19/18 17:28 98.9 F 66 20 171/76 96 Pain Assessment - Last Documented Pain Intensity 8 Pain Scale Used 0-10 Pain Scale Intake and Output: Intake & Output 06/17/18 06/18/18 06/19/18 06/20/18 11:59 11:59 11:59 11:59 Intake Total 680 Output Total 1450 Balance -770 Weight 93.2 kg Lab Results: Lab Results-Last 24 Hours 06/19/18 06/19/18 06/19/18 Range/Units 18:00 18:18 18:18 WBC 8.3 (4.0-10.5) K/mm3 RBC 3.71 L (4.1-5.6) M/mm3 Hgb 11.7 L (12.5-18.0) gm/dl Hct 35.8 L (42-50) % MCV 96.5 (78-100) fl MCH 31.5 (26-32) pg MCHC 32.7 (32-36) g/dl RDW 12.4 (11.5-14.0) % Plt Count 241 (150-450) K/mm3 MPV 9.9 H (6-9.5) fl Gran % 71.2 H (36.0-66.0) % Eos # (Auto) 0.20 (0-0.5) Absolute Lymphs (auto) 1.46 (1.0-4.6) Absolute Monos (auto) 0.67 (0.0-1.3) Lymphocytes % 17.7 L (24.0-44.0) % Monocytes % 8.1 (0.0-12.0) % Eosinophils % 2.4 (0.00-5.0) % Basophils % 0.6 (0.0-0.4) % Absolute Granulocytes 5.87 (1.4-6.9) Basophils # 0.05 (0-0.4) ESR 73 H (0-15) mm/hr Sodium 140 (137-145) mmol/L Potassium 4.2 (3.5-5.1) mmol/L Chloride 103 (98-107) mmol/L Carbon Dioxide 26 (22-30) mmol/L Anion Gap 14.8 (5-15) MEQ/L BUN 32 H (9-20) mg/dL Creatinine 0.84 (0.66-1.25) mg/dL Estimated GFR > 60.0 ML/MIN Glucose 135 H (74-106) mg/dL Lactic Acid 1.1 (0.4-2.0) Calcium 9.5 (8.4-10.2) mg/dL Total Bilirubin 0.50 (0.2-1.3) mg/dL AST 26 (17-59) U/L ALT 22 (0-50) U/L Alkaline Phosphatase 73 (38-126) U/L NT-Pro-B Natriuret Pep 1120 (0-1800) pg/mL Serum Total Protein 7.1 (6.3-8.2) g/dL Albumin 4.1 (3.5-5.0) g/dL Urine Color (YELLOW) Urine Appearance (CLEAR) Urine pH (5-6) Ur Specific [place] (1.005-1.025) Urine Protein (Negative) Urine Ketones (NEGATIVE) Urine Blood (0-5) Oscar/ul Urine Nitrite (NEGATIVE) Urine Bilirubin (NEGATIVE) Urine Urobilinogen (0-1) mg/dL Ur Leukocyte Esterase (NEGATIVE) Urine WBC (Auto) (0-5) /HPF Urine RBC (Auto) (0-2) /HPF U Epithel Cells (Auto) (FEW) /HPF Urine Bacteria (Auto) (NEGATIVE) /HPF Urine Mucus (Auto) (NEGATIVE) /HPF Urine Culture Reflexed (NO) Urine Glucose (NEGATIVE) mg/dL 06/19/ Range/Units 20:30 WBC (4.0-10.5) K/mm3 RBC (4.1-5.6) M/mm3 Hgb (12.5-18.0) gm/dl Hct (42-50) % MCV (78-100) fl MCH (26-32) pg MCHC (32-36) g/dl RDW (11.5-14.0) % Plt Count (150-450) K/mm3 MPV (6-9.5) fl Gran % (36.0-66.0) % Eos # (Auto) (0-0.5) Absolute Lymphs (auto) (1.0-4.6) Absolute Monos (auto) (0.0-1.3) Lymphocytes % (24.0-44.0) % Monocytes % (0.0-12.0) % Eosinophils % (0.00-5.0) % Basophils % (0.0-0.4) % Absolute Granulocytes (1.4-6.9) Basophils # (0-0.4) ESR (0-15) mm/hr Sodium (137-145) mmol/L Potassium (3.5-5.1) mmol/L Chloride (98-107) mmol/L Carbon Dioxide (22-30) mmol/L Anion Gap (5-15) MEQ/L BUN (9-20) mg/dL Creatinine (0.66-1.25) mg/dL Estimated GFR ML/MIN Glucose (74-106) mg/dL Lactic Acid (0.4-2.0) Calcium (8.4-10.2) mg/dL Total Bilirubin (0.2-1.3) mg/dL AST (17-59) U/L ALT (0-50) U/L Alkaline Phosphatase (38-126) U/L NT-Pro-B Natriuret Pep (0-1800) pg/mL Serum Total Protein (6.3-8.2) g/dL Albumin (3.5-5.0) g/dL Urine Color YELLOW (YELLOW) Urine Appearance CLEAR (CLEAR) Urine pH 6.0 (5-6) Ur Specific [place] 1.016 (1.005-1.025) Urine Protein NEGATIVE (Negative) Urine Ketones NEGATIVE (NEGATIVE) Urine Blood SMALL (0-5) Oscar/ul Urine Nitrite NEGATIVE (NEGATIVE) Urine Bilirubin NEGATIVE (NEGATIVE) Urine Urobilinogen NEGATIVE (0-1) mg/dL Ur Leukocyte Esterase NEGATIVE (NEGATIVE) Urine WBC (Auto) 0-2 (0-5) /HPF Urine RBC (Auto) 11-15 (0-2) /HPF U Epithel Cells (Auto) NONE (FEW) /HPF Urine Bacteria (Auto) NONE SEEN (NEGATIVE) /HPF Urine Mucus (Auto) SLIGHT (NEGATIVE) /HPF Urine Culture Reflexed NO (NO) Urine Glucose NEGATIVE (NEGATIVE) mg/dL Radiology Exams: Radiology Procedures Category Date Time Status CHEST 1 VIEW (PORTABLE) Routine Exams 06/19/18 18:00 Completed WRIST (MIN 3 VIEWS) Routine Exams 06/19/18 18:05 Completed Multi-Disciplinary Progress Notes: Multi-Disciplinary Progress Notes 06/19/18 19:52 Pharmacy Note by [facility] notified per order to dose vancomycin. valerie states pt needs no more vancomycin tonight. valerie states that he will decide in the morning when he comes in about dose Initialized on 06/19/18 19:52 - END OF NOTE Assessment/Plan (1) Cellulitis and abscess of foot Current Visit: Yes Status: Acute Assessment & Plan: continue vanc and rocephin, currently afebrile and labs were reviewed. radiograph right wrist shows no significant abnormalities and no evidence of effusion/septic arthritis on exam. infection seems confined to superficial/skin layer Code(s): L03.119 - CELLULITIS OF UNSPECIFIED PART OF LIMB; L02.619 - CUTANEOUS ABSCESS OF UNSPECIFIED FOOT (2) Failure of outpatient treatment Current Visit: No Status: Acute Code(s): Z78.9 - OTHER SPECIFIED HEALTH STATUS
[2018-06-20] MEDS: ROCEPHIN 1 Gm-D5w 50 ml Bag** 1 G/50 ML IVPB IV SCH (19:57)
[2018-06-20] MEDS: MORPHINE SULFATE 2 MG INJ IV PRN (20:41)
[2018-06-20] MEDS: DESYREL 50 MG PO SCH (20:48)
[2018-06-21 05:59] LABS: BASOPHIL % 0.1 % (0.0-0.4); Basophil (Absolute #) 0.01 (0-0.4); Eosinophil % 0.1 % (0.00-5.0); Eosinophil (Absolute #) 0.01 (0-0.5); Granulocyte Absolute (ANC) 7.32 (1.4-6.9); Granulocytes % 86.3 % (36.0-66.0); Hematocrit 32.3 % (42-50); Hemoglobin 10.7 gm/dl (12.5-18.0); Lymphocyte (Absolute #) 0.88 (1.0-4.6); Lymphocytes % 10.4 % (24.0-44.0); Mean Cell Volume 96.7 fl (78-100); Mean Corpuscular Hgb Concent. 33.1 g/dl (32-36); Mean Platelet Volume 10.1 fl (6-9.5); Monocyte (Absolute #) 0.26 (0.0-1.3); Monocytes % 3.1 % (0.0-12.0); Platelet Count 229 K/mm3 (150-450); Red Blood Count 3.34 M/mm3 (4.1-5.6); Red Cell Distribution Width 12.2 % (11.5-14.0); White Blood Count 8.5 K/mm3 (4.0-10.5)
[2018-06-21 06:27] LABS: ANION GAP 11.5 MEQ/L (5-15); BLOOD UREA NITROGEN 30 mg/dL (9-20); CHLORIDE 107 mmol/L (98-107); Calcium 9.3 mg/dL (8.4-10.2); Carbon Dioxide 26 mmol/L (22-30); Creatinine 1 0.75 mg/dL (0.66-1.25); Glucose 235 mg/dL (74-106); Potassium 4.4 mmol/L (3.5-5.1); SODIUM 140 mmol/L (137-145)
--- NOTE | 2018-06-21 08:17 | PCM.NOTE ---
Date and Time: 06/21/18815 Subjective Assessment: patient complaining of terrible/throbbing headache. he is unable to sleep due to the pain. no other complaints at this time Objective Exam General Appearance: no apparent distress, alert Neurologic Exam: alert, oriented x 3, cooperative Skin Exam: normal color, warm, dry, other (erythema, superficial open areas to omayra feet) Respiratory Exam: normal breath sounds, lungs clear, No respiratory distress Cardiovascular Exam: regular rate/rhythm, normal heart sounds Gastrointestinal/Abdomen Exam: soft, No tenderness, No mass OBJECTIVE DATA Vital Signs: Vital Signs - 24 hr Temp Pulse Resp BP Pulse Ox 06/21/18 07:31 98.0 F 84 18 174/84 94 L 06/21/18 04:00 98.1 F 62 18 159/70 93 L 06/20/18 23:58 98.1 F 72 20 165/73 94 L 06/20/18 20:00 98.2 F 62 17 152/70 95 06/20/18 16:00 97.6 F 61 18 151/70 93 L 06/20/18 12:00 98.2 F 77 18 156/72 99 Pain Assessment - Last Documented Pain Intensity 0 Pain Scale Used 0-10 Pain Scale Intake and Output: Intake & Output 06/18/18 06/19/18 06/20/18 06/21/18 11:59 11:59 11:59 11:59 Intake Total 920 1371 Output Total 1450 850 Balance -530 521 Weight 93.2 kg 91.3 kg Lab Results: Lab Results-Last 24 Hours 06/21/18 06/21/18 Range/Units 05:40 05:40 WBC 8.5 (4.0-10.5) K/mm3 RBC 3.34 L (4.1-5.6) M/mm3 Hgb 10.7 L (12.5-18.0) gm/dl Hct 32.3 L (42-50) % MCV 96.7 (78-100) fl MCH 32.0 (26-32) pg MCHC 33.1 (32-36) g/dl RDW 12.2 (11.5-14.0) % Plt Count 229 (150-450) K/mm3 MPV 10.1 H (6-9.5) fl Gran % 86.3 H (36.0-66.0) % Eos # (Auto) 0.01 (0-0.5) Absolute Lymphs (auto) 0.88 L (1.0-4.6) Absolute Monos (auto) 0.26 (0.0-1.3) Lymphocytes % 10.4 L (24.0-44.0) % Monocytes % 3.1 (0.0-12.0) % Eosinophils % 0.1 (0.00-5.0) % Basophils % 0.1 (0.0-0.4) % Absolute Granulocytes 7.32 H (1.4-6.9) Basophils # 0.01 (0-0.4) Sodium 140 (137-145) mmol/L Potassium 4.4 (3.5-5.1) mmol/L Chloride 107 (98-107) mmol/L Carbon Dioxide 26 (22-30) mmol/L Anion Gap 11.5 (5-15) MEQ/L BUN 30 H (9-20) mg/dL Creatinine 0.75 (0.66-1.25) mg/dL Estimated GFR > 60.0 ML/MIN Glucose 235 H (74-106) mg/dL Calcium 9.3 (8.4-10.2) mg/dL Radiology Exams: Radiology Procedures Category Date Time Status CHEST 1 VIEW (PORTABLE) Routine Exams 06/19/18 18:00 Completed HEAD WITHOUT CONTRAST [CT] Routine Exams 06/21/18 08:15 Ordered WRIST (MIN 3 VIEWS) Routine Exams 06/19/18 18:05 Completed Assessment/Plan (1) Cellulitis and abscess of foot Current Visit: Yes Status: Acute Assessment & Plan: continue rocephin and vanc, day #3 today Code(s): L03.119 - CELLULITIS OF UNSPECIFIED PART OF LIMB; L02.619 - CUTANEOUS ABSCESS OF UNSPECIFIED FOOT (2) Failure of outpatient treatment Current Visit: No Status: Acute Code(s): Z78.9 - OTHER SPECIFIED HEALTH STATUS (3) Cephalgia Current Visit: Yes Status: Acute Assessment & Plan: will get noncontrast head CT due to pain Code(s): R51 - HEADACHE
[2018-06-21] MEDS: VANCOCIN 1 GM VIAL*** 1 GM in Sodium Chloride 0.9% 250 ML 250 ML IV SCH ×2 (10:00→22:04)
[2018-06-21] MEDS: DELTASONE 20 MG PO SCH ×2 (10:00→21:07)
[2018-06-21] MEDS: ELIQUIS 2.5 MG TABLET PO SCH ×2 (10:02→21:07)
[2018-06-21] MEDS: MAG-OX 400 PO SCH ×2 (10:02→21:07)
[2018-06-21] MEDS: Klor Con 10 MEQ PO SCH ×2 (10:03→21:07)
[2018-06-21] MEDS: Sodium Chloride 0.9% 10 ML FLUSH Syringe IV SCH ×2 (10:03→21:08)
--- NOTE | 2018-06-21 11:05 | XRAY ---
Indication: Headache. Multiple contiguous axial images obtained through the head without contrast. Comparison: December 17, 2013. Again multiple dental amalgams produces beam artifact limiting images through the base of the brain. Stable age-appropriate global atrophy and mild periventricular degenerative microvascular ischemia bilaterally. Stable tiny remote lacunar infarct in the right mid periventricular region. No acute intracranial hemorrhage, abnormal extra-axial fluid collection, or mass effect. Fourth ventricle is midline without hydrocephalus. Bony calvarium intact. Again a few small polyps/retention cysts in both maxillary sinuses and left orbit metallic density. Remaining visualized paranasal sinuses and mastoid air cells are clear. Impression: 1. 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 2. Stable bilateral maxillary sinus polyps/retention cysts. Comment: Preliminary interpretation was made by [facility]. No critical discrepancy. CTDI 70.69
[2018-06-21] MEDS: TYLENOL 325 MG PO PRN ×2 (13:44→18:07)
[2018-06-21] MEDS: ROCEPHIN 1 Gm-D5w 50 ml Bag** 1 G/50 ML IVPB IV SCH (21:05)
[2018-06-21] MEDS: DESYREL 50 MG PO SCH (21:07)
[2018-06-22] MEDS: Sodium Chloride 0.9% 10 ML FLUSH Syringe IV SCH ×2 (05:59→20:49)
[2018-06-22] MEDS ORDERED: TROUGH DRUG LEVELS IJ ONE (08:30)
[2018-06-22 08:44] LABS: Hematocrit 36.1 % (42-50); Hemoglobin 11.9 gm/dl (12.5-18.0); Mean Cell Volume 95.8 fl (78-100); Mean Platelet Volume 9.7 fl (6-9.5); Platelet Count 275 K/mm3 (150-450); Red Blood Count 3.77 M/mm3 (4.1-5.6); Red Cell Distribution Width 12.5 % (11.5-14.0); White Blood Count 11.2 K/mm3 (4.0-10.5)
[2018-06-22 08:47] LABS: Mean Corpuscular Hemoglobin 31.5 pg (26-32)
[2018-06-22 08:59] LABS: Lymphocytes 10 % (24-44); Monocyte 1 % (0.0-12.0); Neutrophils 89 % (36.-66.); Platelet Estimate NORMAL (NORMAL); Total Cells Counted 100
[2018-06-22 09:18] LABS: ANION GAP 14.3 MEQ/L (5-15); BLOOD UREA NITROGEN 25 mg/dL (9-20); CHLORIDE 105 mmol/L (98-107); Calcium 9.7 mg/dL (8.4-10.2); Carbon Dioxide 27 mmol/L (22-30); Creatinine 1 0.69 mg/dL (0.66-1.25); Glucose 181 mg/dL (74-106); Potassium 4.1 mmol/L (3.5-5.1); SODIUM 142 mmol/L (137-145)
[2018-06-22] MEDS: MAG-OX 400 PO SCH ×2 (10:04→20:49)
[2018-06-22] MEDS: ELIQUIS 2.5 MG TABLET PO SCH ×2 (10:04→20:49)
[2018-06-22] MEDS: Klor Con 10 MEQ PO SCH ×2 (10:04→20:49)
[2018-06-22] MEDS: DELTASONE 20 MG PO SCH (10:04)
[2018-06-22] MEDS: VANCOCIN 1 GM VIAL*** 1 GM in Sodium Chloride 0.9% 250 ML 250 ML IV SCH ×2 (11:01→21:08)
[2018-06-22] MEDS ORDERED: NORCO 5/325 MG PO PRN (12:15)
[2018-06-22] MEDS ORDERED: Dulcolax 10 MG SUPP PR PRN (12:22)
--- NOTE | 2018-06-22 12:22 | PCM.NOTE ---
Date and Time: 06/22/18 1221 Subjective Assessment: still having neck and head pain intermittently no bowel movement since is eating well now wrist pain has resolved his wounds on his feet are improving the swelling is improving with elevation. Objective Exam General Appearance: no apparent distress, alert Neurologic Exam: alert, oriented x 3, cooperative, normal mood/affect Eye Exam: PERRL, EOMI, eyes nml inspection Ears, Nose, Throat Exam: normal ENT inspection, pharynx normal, moist mucous membranes Neck Exam: normal inspection, non-tender, supple, full range of motion Respiratory Exam: normal breath sounds, lungs clear, No respiratory distress Cardiovascular Exam: regular rate/rhythm, normal heart sounds Gastrointestinal/Abdomen Exam: soft, No tenderness, No mass Extremity Exam: other (bilateral feet with dorsal foot blister healing and warmth and redness improving swelling improved) Male Genitalia Exam: deferred Rectal Exam: deferred OBJECTIVE DATA Vital Signs: Vital Signs - 24 hr Temp Pulse Resp BP Pulse Ox 06/22/18 07:31 98.0 F 65 18 164/75 95 06/22/18 05:30 97.6 F 67 18 184/81 95 06/22/18 00:06 98.2 F 66 20 179/80 94 L 06/22/18 00:00 98.2 F 60 20 172/78 93 L 06/21/18 20:00 98.5 F 60 20 172/78 93 L 06/21/18 16:00 98.3 F 73 18 175/83 95 Pain Assessment - Last Documented Pain Intensity 4 Pain Scale Used 0-10 Pain Scale Intake and Output: Intake & Output 06/20/18 06/21/18 06/22/18 06/23/18 11:59 11:59 11:59 11:59 Intake Total 920 1751 1960 Output Total 1450 1550 2550 Balance -530 201 -590 Weight 93.2 kg 91.3 kg 90.3 kg Lab Results: Lab Results-Last 24 Hours 06/22/18 06/22/18 06/22/18 Range/Units 08:30 08:30 08:30 WBC 11.2 H (4.0-10.5) K/mm3 RBC 3.77 L (4.1-5.6) M/mm3 Hgb 11.9 L (12.5-18.0) gm/dl Hct 36.1 L (42-50) % MCV 95.8 (78-100) fl MCH 31.5 (26-32) pg MCHC 33.0 (32-36) g/dl RDW 12.5 (11.5-14.0) % Plt Count 275 (150-450) K/mm3 MPV 9.7 H (6-9.5) fl Segmented Neutrophils 89 H (36.-66.) % Lymphocytes (Manual) 10 L (24-44) % Monocytes (Manual) 1 (0.0-12.0) % Platelet Estimate NORMAL (NORMAL) RBC Morphology NORMAL Sodium 142 (137-145) mmol/L Potassium 4.1 (3.5-5.1) mmol/L Chloride 105 (98-107) mmol/L Carbon Dioxide 27 (22-30) mmol/L Anion Gap 14.3 (5-15) MEQ/L BUN 25 H (9-20) mg/dL Creatinine 0.69 (0.66-1.25) mg/dL Estimated GFR > 60.0 ML/MIN Glucose 181 H (74-106) mg/dL Calcium 9.7 (8.4-10.2) mg/dL Vancomycin Trough 11.71 (10-20) ug/mL Radiology Exams: Radiology Procedures Category Date Time Status HEAD WITHOUT CONTRAST [CT] Routine Exams 06/21/18 08:38 Completed Assessment/Plan (1) Cellulitis and abscess of foot Current Visit: Yes Status: Acute Onset Date: ~06/20/18 Assessment & Plan: improving with vancomycin and ceftriaxone wound culture pending it appears he has not had his blood pressure medications over the weekend and bp is more elvated will restart today he is having constipation laxative ordered today persistent debility, edema improving Code(s): L03.119 - CELLULITIS OF UNSPECIFIED PART OF LIMB; L02.619 - CUTANEOUS ABSCESS OF UNSPECIFIED FOOT (2) Cephalgia Current Visit: Yes Status: Acute Onset Date: ~06/20/18 Assessment & Plan: continue the prednisone suspect contributing factor polymyalgia rheumatica based on symptoms and his response to prednisone as well as his esr. Code(s): R51 - HEADACHE (3) Mnsbgpo-Pyfox-Awmrm disease Current Visit: Yes Status: Chronic (4) Coronary artery disease Current Visit: Yes Status: Chronic Code(s): I25.10 - ATHSCL HEART DISEASE OF [place] CORONARY ARTERY W/O ANG PCTRS (5) Constipation Current Visit: Yes Status: Acute Code(s): K59.00 - CONSTIPATION, UNSPECIFIED (6) Essential hypertension Current Visit: Yes Status: Chronic Code(s): I10 - ESSENTIAL (PRIMARY) HYPERTENSION (7) Atrial fibrillation Current Visit: Yes Status: Chronic Code(s): I48.91 - UNSPECIFIED ATRIAL FIBRILLATION (8) GERD (gastroesophageal reflux disease) Current Visit: Yes Status: Chronic Code(s): K21.9 - GASTRO-ESOPHAGEAL REFLUX DISEASE WITHOUT ESOPHAGITIS
[2018-06-22] MEDS: Senokot-S Tablet PO SCH (12:52)
[2018-06-22] MEDS: Zestril 20 MG PO SCH (12:52)
[2018-06-22] MEDS: Protonix 40MG Tablet PO SCH (12:52)
[2018-06-22] MEDS: Toprol Xl 100 MG PO SCH (12:53)
[2018-06-22] MEDS ORDERED: DELTASONE 20 MG PO ONE (13:00)
[2018-06-22] MEDS: ROCEPHIN 1 Gm-D5w 50 ml Bag** 1 G/50 ML IVPB IV SCH (19:53)
[2018-06-22] MEDS ORDERED: Tums EX 750 MG PO PRN (20:23)
[2018-06-22] MEDS: DESYREL 50 MG PO SCH (20:49)
[2018-06-22] MEDS ORDERED: NORVASC 5 MG PO SCH (22:00)
[2018-06-23 04:49] VITALS: O2SAT 94
[2018-06-23] MEDS ORDERED: Tums EX 750 MG PO PRN (06:49)
[2018-06-23] MEDS: Sodium Chloride 0.9% 10 ML FLUSH Syringe IV SCH (07:05)
[2018-06-23 07:43] VITALS: BP 177/79; PULSE 60
--- NOTE | 2018-06-23 08:29 | PCM.DCORD ---
- Discharge Discharge Date: 06/23/18 Disposition: HOME HEALTH SERVICE Condition: Fair Prescriptions: New Prednisone 10 mg [Deltasone 10 mg] 30 mg PO DAILY #70 tablet Hydrochlorothiazide 12.5 mg PO DAILY #30 tablet Cephalexin Mh 500 mg [Keflex 500 mg] 500 mg PO QID #28 capsule Continue Metoprolol Succinate 100 mg [Toprol Xl 100 MG] 100 mg PO DAILY Potassium Chloride 10 Meq Tab* [Klor Con 10 MEQ] 10 meq PO BID PANTOPRAZOLE 40 mg Tablet [Protonix 40MG Tablet] 40 mg PO QAM Magnesium Oxide 400 mg [Mag-Ox 400] 1 tab PO BID Trazodone HCl 50 mg [Desyrel 50 mg] 100 mg PO HS Lisinopril 20 mg PO DAILY Apixaban [Eliquis] 0.5 tab PO BID Felodipine [Plendil] 10 mg PO DAILY Additional Instructions: [facility] home health referral Follow up with: KAYLENE TSE [Primary Care Provider] - 06/30/18 11:00 am
[2018-06-23] MEDS: VANCOCIN 1 GM VIAL*** 1 GM in Sodium Chloride 0.9% 250 ML 250 ML IV SCH (09:06)
[2018-06-23] MEDS: MAG-OX 400 PO SCH (09:07)
[2018-06-23] MEDS: ELIQUIS 2.5 MG TABLET PO SCH (09:07)
[2018-06-23] MEDS: Klor Con 10 MEQ PO SCH (09:07)
[2018-06-23] MEDS: Toprol Xl 100 MG PO SCH (09:08)
[2018-06-23] MEDS: Zestril 20 MG PO SCH (09:08)
[2018-06-23] MEDS: Protonix 40MG Tablet PO SCH (09:08)
[2018-06-23] MEDS: Senokot-S Tablet PO SCH (09:08)
[2018-06-23] MEDS ORDERED: DELTASONE 20 MG PO SCH (10:00)
[2018-06-23] MEDS ORDERED: hydroDIURIL 25 MG PO SCH (10:00)
[2018-06-23] MEDS ORDERED: DELTASONE 20 MG PO ONE (13:00)
--- NOTE | 2018-06-23 16:37 | PCM.DS ---
Discharge Summary Date of Admission: 06/20/18 09:37 Date of Discharge: 06/23/18 Admitting Physician: KAYLENE TSE Primary Care Provider: KAYLENE TSE Allergies Allergies penicillin G Allergy (Mild, Verified 06/19/18 18:04) [facility] Sulfa (Sulfonamide Antibiotics) [Sulfa(Sulfonamide Antibiotics)] Allergy (Mild, Verified 06/19/18 18:04) [facility] Summary - Hospital Course Hospital Course: he presented initially to the outpatient clinic with diffuse muscle pain and weakness including swelling and pain in his right wrist as well as swelling in the bilateral feet with large painful blisters and redness. He was having worsening symptoms for 1 week at home and on arrival at his office visit had a fever to 100.4. he was very weak and only has his at home and he was having difficulty transferring at home. he is chronically in his transport chair at home but transfers by himself normally. he was admitted with iv antibiotics due to the fever and severity. With his diffuse muscle pains and history of recurrent joint swelling with rapid response to steroids he was also started on prednisone. He tolerated this well and it improved his wrist pain. The xray showed degenerative arthritis only. He remained afebrile and the wounds began to heal. the cultures are still pending from the wound. he tolerated the iv vancomycin and ceftriaxone well and was improving. He was still having muscle pain in his upper back at time of discharge but was otherwise doing well. His blood pressure medications from home were not continued until 06/22 as the admission medicine rec did not make it into the mar it does not appear. His bp was still high on his chronic home medications and hctz 12.5 was added on 06/23 and will continue. with his chronic inflammatory condition of his joints and recurrent effusions and new proximal muscle pain and weakness will try prolonged steroid taper treatment of polymyalgia rheumatica. Also he is homebound and will benefit from home health to help with his medication and wound management. - Vitals & Intake/Output Vital Signs: Vital Signs Temperature 98.0 F 06/23/18 07:42 Pulse Rate 60 06/23/18 07:42 Respiratory Rate 18 06/23/18 07:42 Blood Pressure 177/79 06/23/18 07:42 O2 Sat by Pulse Oximetry 94 L 06/23/18 07:42 Intake & Output: Intake & Output 06/21/18 06/22/18 06/23/18 06/24/18 11:59 11:59 11:59 11:59 Intake Total 1751 0270 2248 240 Output Total 0235 6799 3300 Balance 303 -646 -4037 240 Weight 91.3 kg 90.3 kg 91.5 kg - Lab Result Diagrams: 06/22/18 08:30 06/22/18 08:30 Micro Results-Entire Visit: Microbiology 06/19/18 18:15 Wound Culture - Final Foot - Right Top Criselda Saucedo 06/19/18 18:18 Blood Culture - Preliminary Blood NO GROWTH TO DATE - Procedures and Test Procedures and Tests throughout Hospitalization: Therapy Orders & Screens 06/19/18 19:49 OT Screen per Nursing Assess Comment: Protocol Order Physician Instructions: Greater than 3 points order OT Admission Screening Reason For Exam: Triggered on Admission Diagnosis: Cellulitis foot Open Wound/Cellutlitis/Pressure Ulcers: Yes Acute Fx/ORIF/Change in wt bearing status: No Severe MUSCULOSKELETAL pain: Yes ADL Dysfunction: Yes Acute CVA w/Hemiparesis/Hemiplegia: No Decreased Functional Mobility/Strength: Yes Sprain/Strain: No Acute Post-op Mobility Dysfunction: No Total Points: 14 PT Screen per Nursing Assess Comment: Protocol Order Physician Instructions: Greater than 3 points order PT Admission Screenin Reason For Exam: Triggered on Admission Diagnosis: Cellulitis foot Open Wound/Cellutlitis/Pressure Ulcers: Yes Acute Fx/ORIF/Change in wt bearing status: No Severe MUSCULOSKELETAL pain: Yes ADL Dysfunction: Yes Acute CVA w/Hemiparesis/Hemiplegia: No Decreased Functional Mobility/Strength: Yes Sprain/Strain: No Acute Post-op Mobility Dysfunction: No Total Points: 14 Discharge Exam General Appearance: no apparent distress, alert Neurologic Exam: alert, oriented x 3, cooperative, normal mood/affect Skin Exam: normal color, warm, dry, rash (dorsal aspect of bilateral feet still with redness the blistered areas are now closed and no warmth or drainage) Eye Exam: PERRL, EOMI, eyes nml inspection Ears, Nose, Throat Exam: pharynx normal, moist mucous membranes Neck Exam: normal inspection, supple Respiratory Exam: normal breath sounds, lungs clear, No respiratory distress Cardiovascular Exam: regular rate/rhythm, murmur Gastrointestinal/Abdomen Exam: soft, No tenderness, No mass Extremity Exam: normal range of motion, No pedal edema Back Exam: normal inspection, normal range of motion, No CVA tenderness, No vertebral tenderness Male Genitalia Exam: deferred Rectal Exam: deferred Final Diagnosis/Problem List - Final Discharge Diagnosis/Problem (1) Cellulitis and abscess of foot Status: Acute Onset Date: ~06/20/18 (2) Polymyalgia rheumatica syndrome Status: Acute (3) [id number]-[id number] disease Status: Chronic (4) Coronary artery disease Status: Chronic (5) Constipation Status: Acute (6) Essential hypertension Status: Chronic (7) Atrial fibrillation Status: Chronic (8) GERD (gastroesophageal reflux disease) Status: Chronic (9) Cephalgia Status: Resolved Onset Date: ~06/20/18 - Discharge Discharge Date: 06/23/18 Disposition: HOME HEALTH SERVICE Condition: Fair Prescriptions: New Prednisone 10 mg [Deltasone 10 mg] 30 mg PO DAILY #70 tablet Hydrochlorothiazide 12.5 mg PO DAILY #30 tablet Cephalexin Mh 500 mg [Keflex 500 mg] 500 mg PO QID #28 capsule Continue Metoprolol Succinate 100 mg [Toprol Xl 100 MG] 100 mg PO DAILY Potassium Chloride 10 Meq Tab* [Klor Con 10 MEQ] 10 meq PO BID PANTOPRAZOLE 40 mg Tablet [Protonix 40MG Tablet] 40 mg PO QAM Magnesium Oxide 400 mg [Mag-Ox 400] 1 tab PO BID Trazodone HCl 50 mg [Desyrel 50 mg] 100 mg PO HS Lisinopril 20 mg PO DAILY Apixaban [Eliquis] 0.5 tab PO BID Felodipine [Plendil] 10 mg PO DAILY Instructions: Cellulitis (Skin Infection), Adult (DC) Additional Instructions: [facility] home health referral Follow up with: KAYLENE TSE [Primary Care Provider] - 06/30/18 11:00 am Forms: Discharge Instructions
== END 2018-06-23 13:00 | disposition home health service (06) | DRG 603 ==
LOC: MED SURG 09:37 → OBSVTOIN 06-20 09:37
PROVIDERS: ADMIT Family Medicine; ATTEND Family Medicine
DX: L03.119 Cellulitis of unspecified part of limb (principal); L02.619 Cutaneous abscess of unspecified foot; M35.3 Polymyalgia rheumatica; G60.0 Hereditary motor and sensory neuropathy; I25.10 Atherosclerotic heart disease of native coronary artery without angina pectoris; K59.00 Constipation, unspecified; I10 Essential (primary) hypertension; I48.91 Unspecified atrial fibrillation; K21.9 Gastro-esophageal reflux disease without esophagitis; R51 Headache; E11.9 Type 2 diabetes mellitus without complications; M19.90 Unspecified osteoarthritis, unspecified site; R26.81 Unsteadiness on feet; Z85.46 Personal history of malignant neoplasm of prostate; M25.531 Pain in right wrist; Z78.9 Other specified health status; Z79.01 Long term (current) use of anticoagulants
CPT/HCPCS: 36415; 70450; 71045; 73110; 80048; 80053; 80202; 81001; 83605; 83880; 85025; 85652; 87040; 87070; 87077; G0378; J0696; J2270; J3370; A9270-GY

== ENCOUNTER 2018-08-23 08:42 | Observation (INO) | payer MEDICARE, OTHER ==
--- NOTE | 2018-08-23 08:46 | ERPHSYRPT ---
- History of Present Illness Time Seen by Provider: 08/23/18 08:55 Source: patient Physician History: PATIENT WITH A HISTORY OF HYPERTENSION, ATRIAL FIBRILLATION, PACEMAKER AND GOUTY ARTHRITIS COMPLAINS OF INCREASING LOWER BACK PAIN OVER 2 DAYS AFTER HIS DOSE OF PREDNISONE 30MG DAILY RAN OUT 2 DAYS AGO AND THE PATIENT COMPLAINS OF ASSOCIATED CHEST CONGESTION, DYSPNEA AND LOW-GRADE FEVER. PATIENT DENIES CHEST PAIN, DIAPHORESIS,OR PALPITATIONS. PATIENT IS UNABLE TO GET OUT OF BED DUE TO SEVERE PAIN. Timing/Duration: day(s) Method of Injury: other (DENIES INJURY OR TRAUMA) Back Pain Location: lumbar spine Severity of Pain-Max: moderate Severity of Pain-Current: moderate Modifying Factors: Improves With: movement Associated Symptoms: fever, muscle spasms, other (CONGESTED COUGH) Previous symptoms: same symptoms as today Allergies/Adverse Reactions: penicillin G Allergy (Mild, Verified 06/19/18 18:04) Hives Sulfa (Sulfonamide Antibiotics) [Sulfa(Sulfonamide Antibiotics)] Allergy (Mild, Verified 06/19/18 18:04) Hives Home Medications: Metoprolol Succinate 100 mg [Toprol Xl 100 MG] 100 mg PO DAILY 12/18/13 [ History] Magnesium Oxide 400 mg [Mag-Ox 400] 1 tab PO BID 06/19/18 [History] PANTOPRAZOLE 40 mg Tablet [Protonix 40MG Tablet] 40 mg PO QAM 06/19/18 [ History] Potassium Chloride 10 Meq Tab* [Klor Con 10 MEQ] 10 meq PO BID 06/19/18 [ History] Trazodone HCl 50 mg [Desyrel 50 mg] 100 mg PO HS 06/19/18 [History] Apixaban [Eliquis] 0.5 tab PO BID 06/23/18 [History] Felodipine [Plendil] 10 mg PO DAILY 06/23/18 [History] Lisinopril 20 mg PO DAILY 06/23/18 [History] Furosemide 40 mg PO DAILY 08/23/18 [History] Hx Tetanus, Diphtheria Vaccination/Date Given: Yes (2014) Hx Influenza Vaccination/Date Given: No Hx Pneumococcal Vaccination/Date Given: No - Review of Systems Constitutional: Fever, No Chills Eyes: No Symptoms Ears, Nose, & Throat: No Symptoms Respiratory: Cough, Dyspnea on Exertion (PHILLIPS), No Dyspnea Cardiac: No Symptoms, No Chest Pain, No Edema, No Syncope Abdominal/Gastrointestinal: No Symptoms, No Abdominal Pain, No Nausea, No Vomiting, No Diarrhea Genitourinary Symptoms: No Symptoms, No Dysuria Musculoskeletal: Back Pain, Joint Pain, No Neck Pain Skin: No Rash Neurological: No Dizziness, No Focal Weakness, No Sensory Changes Psychological: No Symptoms Endocrine: No Symptoms All Other Systems: Reviewed and Negative - Past Medical History Pertinent Past Medical History: Yes Neurological History: Peripheral Neuropathy ENT History: No Pertinent History, Cataracts, Other Cardiac History: Arrhythmia, Hypertension Respiratory History: No Pertinent History Endocrine Medical History: Diabetes Type II Musculoskeletal History: Arthritis GI Medical History: No Pertinent History History: No Pertinent History Psycho-Social History: No Pertinent History Male Reproductive Disorders: Prostate Cancer, Prostate Problems Other Medical History: pacemaker - Past Surgical History Past Surgical History: Yes Neuro Surgical History: No Pertinent History Cardiac: Cardiac Catheterization, Pacemaker Respiratory: No Pertinent History Gastrointestinal: Hernia Repair Genitourinary: No Pertinent History Musculoskeletal: Orthopedic Surgery Male Surgical History: No Pertinent History Other Surgical History: tonsils - Social History Smoking Status: Former smoker Exposure to second hand smoke: Yes Alcohol Use: None Drug Use: none Patient Lives Alone: No Significant Family History: no pertinent family hx - Nursing Vital Signs Nursing Vital Signs: Initial Vital Signs Temperature 100.2 F 08/23/18 08:44 Pulse Rate 72 08/23/18 08:44 Respiratory Rate 18 08/23/18 08:44 Blood Pressure 116/70 08/23/18 08:44 O2 Sat by Pulse Oximetry 93 L 08/23/18 08:44 Pain Scale Pain Intensity 0 - Physical Exam General Appearance: no apparent distress, alert Eye Exam: PERRL/EOMI, eyes nml inspection Neck Exam: normal inspection, non-tender, supple, full range of motion, No meningismus, No midline tenderness Respiratory Exam: crackles/rales, wheezing (LEFT POSTERIOR LOWER LOBE), No respiratory distress Cardiovascular Exam: regular rate/rhythm, normal heart sounds Gastrointestinal Exam: soft, normal bowel sounds, No tenderness, No mass Back Exam: normal inspection, vertebral tenderness (PARASPINAL LUMBAR TENDERNESS ), decreased range of motion Extremity Exam: normal inspection, normal range of motion, No calf tenderness, No pedal edema Peripheral Pulses: carotid (R): 2+, carotid (L): 2+, femoral (R): 2+, femoral (L ): 2+, dorsalis-pedis (R): 2+, dorsalis-pedis (L): 2+ Neurologic Exam: alert, oriented x 3, cooperative, end finder twisting department II-XII nml as tested, normal mood/affect, nml station & gait, sensation nml, No motor deficits Skin Exam: normal color, warm, dry, No rash SpO2 Interpretation: borderline oxygenation SpO2: 93 O2 Delivery: Room Air - Course EKG Interpreted by Me: RATE, Sinus Rhythm (VENTRICULAR PACED RHYTHM) - Radiology Exams Chest X-ray Interpretation: Interpreted by me (LEFT BASILAR INFILTRATE VS SCARRING) - CT Exams Lumbar Spine CT Interpretation: Tele-radiologist Report (SEVERE COLONIC DIVERTICULOSIS, 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, DIFFUSE DEGENERATIVE DISC DISEASE, MODERATE TO SEVERE L5-S1 CENTRAL SPINAL STENOSIS) Ordered Tests: Active Orders 24 hr Category Date Time Status Bedrest with BRP/BSC ROUTINE Activity 08/23/18 12:38 Ordered Call Admit Doctor for Orders ON ADMISSION Care 08/23/18 12:38 Ordered Sales Office Administrator STAT Care 08/23/18 09:01 Active Clean Catch Urine Specimen STAT Care 08/23/18 08:46 Active Code Status Order ROUTINE Care 08/23/18 12:37 Ordered EKG-ER Only STAT Care 08/23/18 09:00 Active IV Care Q6H Care 08/23/18 12:37 Ordered IV Insertion STAT Care 08/23/18 09:00 Active Oxygen-ED Only Nasal Cannula 2 lpm Care 08/23/18 09:[address] in Observation ROUTINE Care 08/23/18 12:37 Ordered Vital Signs Q4H Care 08/23/18 12:37 Ordered Regular Diet Diet 08/23/18 Dinner Ordered CHEST 1 VIEW (PORTABLE) Stat Exams 08/23/18 09:00 Taken LUMBAR SPINE W/O [CT] Stat Exams 08/23/18 10:00 Taken BLOOD CULTURE Stat Lab 08/23/18 09:30 Received CBC W DIFF Stat Lab 08/23/18 09:00 Completed CMP Stat Lab 08/23/18 09:00 Completed CULTURE,URINE Stat Lab 08/23/18 11:39 Received MAGNESIUM Stat Lab 08/23/18 09:00 Completed Manual Differential NC Stat Lab 08/23/18 09:00 Completed PROTIME WITH INR Stat Lab 08/23/18 09:00 Completed SED RATE [Erythrocyte Sedimentation Rate] Stat Lab 08/23/18 09:00 Completed TROPONIN Q3H Lab 08/23/18 09:00 Completed TROPONIN Q3H Lab 08/23/18 11:50 Received TROPONIN Q3H Lab 08/23/18 15:00 Ordered TROPONIN Q3H Lab 08/23/18 18:00 Ordered TROPONIN Q3H Lab 08/23/18 21:00 Ordered UA W/RFX UR CULTURE Stat Lab 08/23/18 11:39 Completed Oxygen Nasal Cannula 2 lpm RT 08/23/18 12:37 Ordered Peak Expiratory Flow Rate ONCE RT 08/23/18 09:10 Completed Respiratory Therapy Assessment DAILY RT 08/23/18 09:13 Completed Transfer Order Routine Transfer 08/23/18 Ordered Medication Summary Generic Name Dose Route Start Last Admin Trade Name Freq PRN Reason Stop Dose Admin Acetaminophen 650 mg 08/23/18 12:37 Tylenol 325 Mg PO 09/22/18 12:36 Q4H PRN PRN PAIN AND/OR FEVER Albuterol/Ipratropium 3 ml 08/23/18 12:37 Duoneb 0.5-3 Mg/3 Ml Neb IH 09/22/18 12:36 Q4HPRN PRN SHORTNESS OF BREATH/WHEEZING Apixaban 5 mg 08/23/18 22:00 Eliquis 2.5 Mg Tablet PO 09/22/18 21:59 BID VINEET Furosemide 40 mg 08/24/18 10:00 Lasix 40 Mg PO 09/23/18 09:59 DAILY VINEET Sodium Chloride 1,000 mls @ 50 mls/hr 08/23/18 09:00 08/23/18 09:18 Sodium Chloride 0.9% 1000 Ml IV 09/22/18 08:59 50 mls/hr .Q20H VINEET Administration Azithromycin 500 mg in 250 mls @ 250 mls/hr 08/24/18 10:00 Zithromax 500 Mg/ 250 Ml Nacl Premix IV 09/23/18 09:59 Q24H10 VINEET Ceftriaxone Sodium/Dextrose 1 g in 50 mls @ 100 mls/hr 08/24/18 10:00 Rocephin 1 Gm-D5w 50 Ml Bag IV 09/23/18 09:59 Q24H10 VINEET Discontinued Medications Generic Name Dose Route Start Last Admin Trade Name Damian DAMICON Reason Stop Dose Admin Acetaminophen 650 mg 08/23/18 09:11 08/23/18 09:51 Tylenol 325 Mg PO 08/23/18 09:12 650 mg STAT STA Administration Acetaminophen Confirm 08/23/18 09:47 Tylenol 325 Mg Administered 08/23/18 09:48 Dose 650 mg .ROUTE .STK-MED ONE Albuterol/Ipratropium 3 ml 08/23/18 09:10 08/23/18 09:44 Duoneb 0.5-3 Mg/3 Ml Neb IH 08/23/18 09:11 3 ml STAT ONE Administration Albuterol/Ipratropium Confirm 08/23/18 09:24 Duoneb 0.5-3 Mg/3 Ml Neb Administered 08/23/18 09:25 Dose 3 ml IH .STK-MED ONE Ceftriaxone Sodium/Dextrose 1 g in 50 mls @ 100 mls/hr 08/23/18 09:10 10:08 Rocephin 1 Gm-D5w 50 Ml Bag IV 08/23/18 09:39 Infused STAT STA Infusion Azithromycin 500 mg in 250 mls @ 250 mls/hr 08/23/18 09:10 08/23/18 11:03 Zithromax 500 Mg/ 250 Ml Nacl Premix IV 08/23/18 10:09 Infused STAT STA Infusion Ceftriaxone Sodium/Dextrose Confirm 08/23/18 09:16 Rocephin 1 Gm-D5w 50 Ml Bag Administered 08/23/18 09:17 Dose 1 g in 50 mls @ ud IV .STK-MED ONE Azithromycin Confirm 08/23/18 09:47 Zithromax 500 Mg/ 250 Ml Nacl Premix Administered 08/23/18 09:48 Dose 500 mg in 250 mls @ ud IV .STK-MED ONE Methylprednisolone Sodium Succinate 125 mg 08/23/18 09:01 08/23/18 09:17 Solu-Medrol 125 Mg IV 08/23/18 09:02 125 mg STAT ONE Administration Methylprednisolone Sodium Succinate Confirm 08/23/18 09:16 Solu-Medrol 125 Mg Administered 08/23/18 09:17 Dose 125 mg .ROUTE .STK-MED ONE Morphine Sulfate 2 mg 08/23/18 09:00 08/23/18 09:18 Morphine Sulfate 2 Mg Inj IV 08/23/18 09:01 2 mg STAT ONE Administration Morphine Sulfate Confirm 08/23/18 09:16 Morphine Sulfate 2 Mg Inj Administered 08/23/18 09:17 Dose 2 mg .ROUTE .STK-MED ONE Ondansetron HCl 4 mg 08/23/18 09:00 08/23/18 09:17 Zofran 4 Mg/2 Ml Vial IV 08/23/18 09:01 4 mg STAT ONE Administration Ondansetron HCl Confirm 08/23/18 09:16 Zofran 4 Mg/2 Ml Vial Administered 08/23/18 09:17 Dose 4 mg .ROUTE .STK-MED ONE Lab/Rad Data: Laboratory Result Diagrams 08/23/18 09:00 08/23/18 09:00 Laboratory Results 08/23/18 08/23/18 08/23/18 Range/Units 11:39 09:00 09:00 WBC (4.0-10.5) K/mm3 RBC (4.1-5.6) M/mm3 Hgb (12.5-18.0) gm/dl Hct (42-50) % MCV (78-100) fl MCH (26-32) pg MCHC (32-36) g/dl RDW (11.5-14.0) % Plt Count (150-450) K/mm3 MPV (6-9.5) fl Segmented Neutrophils (36.-66.) % Lymphocytes (Manual) (24-44) % Monocytes (Manual) (0.0-12.0) % Atypical Lymphocytes % Toxic Granulation Platelet Estimate (NORMAL) RBC Morphology Anisocytosis ESR 52 H (0-15) mm/hr PT 14.8 H (8.83-12.87) SECONDS INR 1.27 (0.8-3.0) Sodium (137-145) mmol/L Potassium (3.5-5.1) mmol/L Chloride (98-107) mmol/L Carbon Dioxide (22-30) mmol/L Anion Gap (5-15) MEQ/L BUN (9-20) mg/dL Creatinine (0.66-1.25) mg/dL Estimated GFR ML/MIN Glucose (74-106) mg/dL Calcium (8.4-10.2) mg/dL Magnesium (1.6-2.3) mg/dL Total Bilirubin (0.2-1.3) mg/dL AST (17-59) U/L ALT (0-50) U/L Alkaline Phosphatase (38-126) U/L Troponin I (0.000-0.034) ng/mL Serum Total Protein (6.3-8.2) g/dL Albumin (3.5-5.0) g/dL Urine Color AIDEN (YELLOW) Urine Appearance CLEAR (CLEAR) Urine pH 6.0 (5-6) Ur Specific [place] 1.017 (1.005-1.025) Urine Protein 30 (Negative) Urine Ketones TRACE (NEGATIVE) Urine Blood NEGATIVE (0-5) Oscar/ul Urine Nitrite NEGATIVE (NEGATIVE) Urine Bilirubin NEGATIVE (NEGATIVE) Urine Urobilinogen NEGATIVE (0-1) mg/dL Ur Leukocyte Esterase NEGATIVE (NEGATIVE) Urine WBC (Auto) 6-10 (0-5) /HPF Urine RBC (Auto) 6-10 (0-2) /HPF U Epithel Cells (Auto) NONE (FEW) /HPF Urine Mucus (Auto) MODERATE (NEGATIVE) /HPF Urine Culture Reflexed YES (NO) Urine Glucose NEGATIVE (NEGATIVE) mg/dL 08/23/18 08/23/18 08/23/18 Range/Units 09:00 09:00 09:00 WBC 8.5 (4.0-10.5) K/mm3 RBC 3.78 L (4.1-5.6) M/mm3 Hgb 11.9 L (12.5-18.0) gm/dl Hct 36.0 L (42-50) % MCV 95.2 (78-100) fl MCH 31.4 (26-32) pg MCHC 33.1 (32-36) g/dl RDW 13.9 (11.5-14.0) % Plt Count 118 L (150-450) K/mm3 MPV 9.5 (6-9.5) fl Segmented Neutrophils 85 H (36.-66.) % Lymphocytes (Manual) 8 L (24-44) % Monocytes (Manual) 3 (0.0-12.0) % Atypical Lymphocytes 4 % Toxic Granulation 1+ Platelet Estimate NORMAL (NORMAL) RBC Morphology ABNORMAL Anisocytosis 1+ ESR (0-15) mm/hr PT (8.83-12.87) SECONDS INR (0.8-3.0) Sodium 133 L (137-145) mmol/L Potassium 3.7 (3.5-5.1) mmol/L Chloride 97 L (98-107) mmol/L Carbon Dioxide 28 (22-30) mmol/L Anion Gap 11.7 (5-15) MEQ/L BUN 24 H (9-20) mg/dL Creatinine 0.97 (0.66-1.25) mg/dL Estimated GFR > 60.0 ML/MIN Glucose 156 H (74-106) mg/dL Calcium 8.7 (8.4-10.2) mg/dL Magnesium 1.9 (1.6-2.3) mg/dL Total Bilirubin 1.70 H (0.2-1.3) mg/dL AST 13 L (17-59) U/L ALT 17 (0-50) U/L Alkaline Phosphatase 56 (38-126) U/L Troponin I 0.046 H* (0.000-0.034) ng/mL Serum Total Protein 6.0 L (6.3-8.2) g/dL Albumin 3.3 L (3.5-5.0) g/dL Urine Color (YELLOW) Urine Appearance (CLEAR) Urine pH (5-6) Ur Specific [place] (1.005-1.025) Urine Protein (Negative) Urine Ketones (NEGATIVE) Urine Blood (0-5) Oscar/ul Urine Nitrite (NEGATIVE) Urine Bilirubin (NEGATIVE) Urine Urobilinogen (0-1) mg/dL Ur Leukocyte Esterase (NEGATIVE) Urine WBC (Auto) (0-5) /HPF Urine RBC (Auto) (0-2) /HPF U Epithel Cells (Auto) (FEW) /HPF Urine Mucus (Auto) (NEGATIVE) /HPF Urine Culture Reflexed (NO) Urine Glucose (NEGATIVE) mg/dL - Progress Progress: pain not gone completely Progress Note: 08/23/18 12:17 IV NORMAL SALINE 50ML/HR, TYLENOL 650MG, SOLUMEDROL 125MG IV, MORPHINE 2MG IV, DUONEB AEROSOL TX, AFTER 2 SETS OF BLOOD CULTURES ADMINISTERED ROCEPHIN 1GM AND ZITHROMAX 500MG IVPB Discussed with : Mikie (DISCUSSED WITH DR ROBLES AT 1215 FOR OBSERVATION) - Departure Time of Disposition: 12:46 Departure Disposition: Observation Clinical Impression: INTRACTABLE LOW BACK PAIN, ACUTE BRONCHITIS, URINARY TRACT INFECTION Condition: Stable Critical Care Time: No Referrals: KAYLENE TSE [ACTIVE STAFF] -
[2018-08-23] MEDS ORDERED: MORPHINE SULFATE 2 MG INJ IV ONE (09:00)
[2018-08-23] MEDS ORDERED: Zofran 4 MG/2 ML VIAL IV ONE (09:00)
[2018-08-23] MEDS ORDERED: solu-MEDROL 125 MG IV ONE (09:01)
[2018-08-23] MEDS ORDERED: Zithromax 500 MG/ 250 ML NaCl Premix 500 MG/250 ML IVPB IV STA (09:10)
[2018-08-23] MEDS ORDERED: DUONEB 0.5-3 MG/3 ml Neb IH ONE ×2 (09:10→09:24)
[2018-08-23] MEDS ORDERED: ROCEPHIN 1 Gm-D5w 50 ml Bag** 1 G/50 ML IVPB IV STA (09:10)
[2018-08-23] MEDS ORDERED: TYLENOL 325 MG PO STA (09:11)
[2018-08-23 09:16] LABS: Hemoglobin 11.9 gm/dl (12.5-18.0); Mean Cell Volume 95.2 fl (78-100); Mean Corpuscular Hgb Concent. 33.1 g/dl (32-36); Mean Platelet Volume 9.5 fl (6-9.5); Platelet Count 118 K/mm3 (150-450); Red Blood Count 3.78 M/mm3 (4.1-5.6); Red Cell Distribution Width 13.9 % (11.5-14.0); White Blood Count 8.5 K/mm3 (4.0-10.5)
[2018-08-23] MEDS ORDERED: solu-MEDROL 125 MG ONE (09:16)
[2018-08-23] MEDS ORDERED: Sodium Chloride 0.9% 1000 ML 1,000 ML ONE (09:16)
[2018-08-23] MEDS ORDERED: Zofran 4 MG/2 ML VIAL ONE (09:16)
[2018-08-23] MEDS ORDERED: ROCEPHIN 1 Gm-D5w 50 ml Bag** 1 G/50 ML IVPB IV ONE (09:16)
[2018-08-23] MEDS ORDERED: MORPHINE SULFATE 2 MG INJ ONE (09:16)
[2018-08-23] MEDS: Sodium Chloride 0.9% 1000 ML 1,000 ML IV SCH (09:18)
[2018-08-23 09:21] LABS: INR 1.27 (0.8-3.0); PROTIME 14.8 SECONDS (8.83-12.87)
[2018-08-23 09:34] LABS: Mean Corpuscular Hemoglobin 31.4 pg (26-32)
[2018-08-23 09:40] LABS: ATYPICAL LYMPHS 4 %; Lymphocytes 8 % (24-44); Monocyte 3 % (0.0-12.0); Neutrophils 85 % (36.-66.); Total Cells Counted 100
[2018-08-23 09:41] LABS: Toxic Granulation 1+
[2018-08-23 09:42] LABS: ANISOCYTOSIS 1+; Platelet Estimate NORMAL (NORMAL)
[2018-08-23] MEDS ORDERED: TYLENOL 325 MG ONE (09:47)
[2018-08-23] MEDS ORDERED: Zithromax 500 MG/ 250 ML NaCl Premix 500 MG/250 ML IVPB IV ONE (09:47)
[2018-08-23 09:50] LABS: ALBUMIN 3.3 g/dL (3.5-5.0); ALKALINE PHOSPHATASE 56 U/L (38-126); ANION GAP 11.7 MEQ/L (5-15); BLOOD UREA NITROGEN 24 mg/dL (9-20); CHLORIDE 97 mmol/L (98-107); Calcium 8.7 mg/dL (8.4-10.2); Carbon Dioxide 28 mmol/L (22-30); Creatinine 1 0.97 mg/dL (0.66-1.25); Glucose 156 mg/dL (74-106); MAGNESIUM 1.9 mg/dL (1.6-2.3); Potassium 3.7 mmol/L (3.5-5.1); SGOT/AST 13 U/L (17-59); SGPT/ALT 17 U/L (0-50); SODIUM 133 mmol/L (137-145)
[2018-08-23 12:16] LABS: Appearance CLEAR (CLEAR); Bilirubin NEGATIVE (NEGATIVE); Blood NEGATIVE Ery/ul (0-5); Glucose NEGATIVE (NEGATIVE); Ketones TRACE (NEGATIVE); Leukocyte Esterase NEGATIVE (NEGATIVE); Mucus MODERATE /HPF (NEGATIVE); Nitrite NEGATIVE (NEGATIVE); Protein,Urine Dip 30 (Negative); Specific Gravity 1.017 (1.005-1.025); Urobilinogen NEGATIVE mg/dL (0-1)
[2018-08-23] MEDS ORDERED: DUONEB 0.5-3 MG/3 ml Neb IH PRN (12:37)
[2018-08-23] MEDS ORDERED: Zofran 4 MG/2 ML VIAL IV PRN (12:37)
[2018-08-23] MEDS ORDERED: TYLENOL 325 MG PO PRN (12:37)
[2018-08-23] MEDS ORDERED: NORCO 5/325 MG PO PRN (12:43)
[2018-08-23] MEDS ORDERED: DESYREL 50 MG PO ONE ×2 (12:43→22:00)
[2018-08-23] MEDS ORDERED: MORPHINE SULFATE 2 MG INJ IV PRN (12:44)
--- NOTE | 2018-08-23 15:57 | XRAY ---
Indication: Cough. Comparison: June 19, 2018. Portable chest demonstrates stable cardiomegaly, left-sided dual-lead pacemaker, left basal atelectasis/scarring, mild osteopenia, and mild bony degenerative changes. New moderate hiatal hernia. No acute cardiopulmonary abnormalities.
--- NOTE | 2018-08-23 16:03 | XRAY ---
Indication: Intractable lumbar pain. No known injury. Multiple contiguous axial images obtained through the lumbar spine. Sagittal and coronal reformatted images obtained. Comparison: CT abdomen/pelvis July 07, 2017. Stable osteopenia and moderate multilevel degenerative spondylosis again greatest at the L4-L5 level where there is spinal canal and bilateral foraminal stenosis. Also stable L2-L3 degenerative vacuum disc phenomena. Sagittal and coronal reformatted images demonstrates stable normal lumbar alignment with grade 1 L4-L5 spondylolisthesis. No acute compression fracture or new subluxation. Visualized noncontrasted soft tissues again demonstrates bilateral renal cysts, moderate aortoiliac calcifications, and sigmoid diverticulosis. Impression: 1. Stable osteopenia, multilevel degenerative spondylosis, and grade 1 L5 spondylolisthesis. 2. Stable partially visualized bilateral renal cysts and sigmoid diverticulosis. 3. No new/acute findings. Comment: Preliminary interpretation was made by [facility]. No discrepancy. CTDI 85.45
[2018-08-23] MEDS: Protonix 40MG Tablet PO SCH (16:29)
[2018-08-23] MEDS: Lasix 40 MG PO SCH (16:29)
[2018-08-23] MEDS: Zestril 20 MG PO SCH (16:30)
[2018-08-23] MEDS: Toprol Xl 100 MG PO SCH (16:30)
[2018-08-23] MEDS: solu-MEDROL 125 MG IV SCH ×2 (17:03→23:57)
[2018-08-23] MEDS: NovoLOG Insulin SQ PRN ×2 (17:07→23:09)
[2018-08-23] MEDS ORDERED: DESYREL 50 MG PO SCH (22:00)
[2018-08-23] MEDS ORDERED: ELIQUIS 2.5 MG TABLET PO SCH (22:00)
[2018-08-23] MEDS: MAG-OX 400 PO SCH (22:58)
[2018-08-23] MEDS: ELIQUIS 2.5 MG TABLET PO SCH (22:59)
[2018-08-24] MEDS: solu-MEDROL 125 MG IV SCH (05:10)
[2018-08-24] MEDS: Sodium Chloride 0.9% 1000 ML 1,000 ML IV SCH (05:11)
[2018-08-24] MEDS ORDERED: MEDICATION INTERVENTION MC SCH (07:30)
[2018-08-24] MEDS: NovoLOG Insulin SQ PRN ×4 (07:58→22:02)
[2018-08-24] MEDS: Toprol Xl 100 MG PO SCH (09:13)
[2018-08-24] MEDS: Klor Con 10 MEQ PO SCH (09:13)
[2018-08-24] MEDS: Miralax Powder 17GM PACKET PO SCH (09:13)
[2018-08-24] MEDS: ROCEPHIN 1 Gm-D5w 50 ml Bag** 1 G/50 ML IVPB IV SCH (09:13)
[2018-08-24] MEDS: Lasix 40 MG PO SCH (09:13)
[2018-08-24] MEDS: DELTASONE 10 MG PO SCH (09:13)
[2018-08-24] MEDS: Toprol Xl 50 MG PO SCH (09:13)
[2018-08-24] MEDS: ELIQUIS 2.5 MG TABLET PO SCH ×2 (09:13→22:07)
[2018-08-24] MEDS: Zestril 20 MG PO SCH (09:13)
[2018-08-24] MEDS: MAG-OX 400 PO SCH ×2 (09:14→22:07)
[2018-08-24] MEDS: Protonix 40MG Tablet PO SCH (09:14)
[2018-08-24] MEDS ORDERED: NON-FORMULARY ITEM (Potassium Chloride [Potassium Chloride] 8 MEQ) PO SCH (10:00)
[2018-08-24] MEDS: Zithromax 500 MG/ 250 ML NaCl Premix 500 MG/250 ML IVPB IV SCH (10:15)
[2018-08-24] MEDS ORDERED: DESYREL 50 MG PO SCH (22:00)
[2018-08-25] MEDS: NovoLOG Insulin SQ PRN ×3 (08:17→11:55)
--- NOTE | 2018-08-25 08:40 | PCM.DCORD ---
- Discharge Discharge Date: 08/25/18 Prescriptions: New predniSONE [Prednisone] 10 mg PO UD 9 Days #18 tablet Continue PANTOPRAZOLE 40 mg Tablet [Protonix 40MG Tablet] 40 mg PO QAM Magnesium Oxide 400 mg [Mag-Ox 400] 1 tab PO BID Trazodone HCl 50 mg [Desyrel 50 mg] 100 mg PO HS Lisinopril 20 mg PO DAILY Felodipine [Plendil] 10 mg PO HS Furosemide 40 mg PO DAILY Apixaban [Eliquis 2.5 mg Tablet] 2.5 mg PO BID Potassium Chloride 8 meq PO DAILY Metoprolol Succinate 50 mg [Toprol Xl 50 MG] 50 mg PO DAILY Metoprolol Succinate [Toprol Xl] 100 mg PO DAILY Follow up with: JANNY STOUT [Primary Care Provider] - 09/01/18 10:00 am
[2018-08-25] MEDS: ROCEPHIN 1 Gm-D5w 50 ml Bag** 1 G/50 ML IVPB IV SCH (09:17)
[2018-08-25] MEDS: Zestril 20 MG PO SCH (09:18)
[2018-08-25] MEDS: Toprol Xl 100 MG PO SCH (09:18)
[2018-08-25] MEDS: DELTASONE 10 MG PO SCH (09:18)
[2018-08-25] MEDS: Klor Con 10 MEQ PO SCH (09:18)
[2018-08-25] MEDS: Protonix 40MG Tablet PO SCH (09:18)
[2018-08-25] MEDS: ELIQUIS 2.5 MG TABLET PO SCH (09:18)
[2018-08-25] MEDS: MAG-OX 400 PO SCH (09:18)
[2018-08-25] MEDS: Lasix 40 MG PO SCH (09:18)
[2018-08-25] MEDS: Miralax Powder 17GM PACKET PO SCH (09:18)
[2018-08-25] MEDS: Toprol Xl 50 MG PO SCH (09:18)
[2018-08-25] MEDS: Zithromax 500 MG/ 250 ML NaCl Premix 500 MG/250 ML IVPB IV SCH (10:08)
[2018-08-25 12:18] VITALS: BP 138/64; PULSE 63; O2SAT 97
--- NOTE | 2018-08-26 10:08 | SSS ---
DISCHARGE DIAGNOSES: 1) INTRACTABLE LOWER BACK PAIN. 2) BRONCHITIS. 3) HISTORY OF DIABETES MELLITUS TYPE 2. HISTORY: The patient is an 82 year-old white male patient who reported increasing lower back pain over the past two days. He had been placed on prednisone for outpatient bronchitis treatment with exacerbation. He reports he felt better while he was on the prednisone but as it began to wear off he began having problems with lower back pain to the point where it was uncontrollable. The patient presented to the emergency room and was subsequently admitted to the hospital for evaluation and management. The patient reports that he is always in a wheelchair although he does stand to do dishes. He has had therapy as outpatient but has been unable to get to the point where he can walk well. He does have evidence of muscle wasting in his lower extremities and his hands as well. PAST MEDICAL/SURGICAL HISTORY: HOME MEDICATIONS: Metoprolol 100 mg daily, magnesium 400 mg twice a day, pantoprazole 40 mg a day, potassium 10 mEq twice a day, trazodone 100 mg at night, Eliquis 0.5 mg b.i.d., Plendil 10 mg daily, lisinopril 20 mg a day, Lasix 40 mg a day. ALLERGIES: PENICILLIN, SULFA. PHYSICAL EXAMINATION: Vital signs on admission showed a temperature 100.2F, pulse 72, respiratory rate 18, blood pressure 116/70. O2 saturation 93%. HEENT: Normocephalic, atraumatic. Pupils equal round reactive to light. Extraocular movements intact. Oropharynx is pink and moist. NECK: Supple without lymphadenopathy, thyromegaly or JVD. CHEST: Clear to auscultation. HEART: Regular rate and rhythm. ABDOMEN: Soft without palpable masses. EXTREMITIES: Muscle wasting as mentioned previously. There is no clubbing, cyanosis or edema. NEUROLOGIC: He is alert and oriented x3. No specific focal deficits are seen but muscle weakness is apparent. LAB DATA AND TESTS: Laboratory studies initially showed UA with 6 to 10 white blood cells per high power field, negative nitrite. International normalized ratio 1.27. His white blood cell count 3,500, hemoglobin 11.9, PLT count 118,000. There were 85 polys, no bands. Sed rate was 62. Troponin was elevated 0.046. Sugar 156. BUN 24, creatinine 0.97. Sodium slightly low at 133. Potassium normal. Bilirubin was slightly elevated at 1.7. Liver enzymes were normal. Follow up troponins revealed slight elevation at 0.032. He had an A1C of 8.13. Uric acid 6.6. Additional troponin last one measured at 0.023. HOSPITAL COURSE: The patient was admitted to the medicine hernadez. He was given IV fluid hydration and Solu-Medrol. He was also placed empirically on Zithromax and Rocephin. By the morning of 08/24/2018, he was improving and by 08/25/2018 he was felt to be ready for discharge home again. We placed him on a tapered dose of prednisone at 30 mg for three days, 20 mg for three days and then 10 mg for three days. We will see him in follow up in the office in one week. We will consider additional evaluations by neurology for evaluation of his muscle weakness and elevation of his sedimentation rate to determine the underlying reason for his continued muscle weakness and wasting. The patient had claimed that this was due to the gout which he has been told in the past but I doubt that this is the true cause of his problems. He will return to the hospital if he has any increasing problems in the interim. We will continue him on his home medications as stated above.
== END 2018-08-25 15:47 | disposition home or self-care (01) ==
LOC: ED 08:42 → MED SURG 13:13
PROVIDERS: ADMIT Internal Medicine; ATTEND Family Medicine
DX: M54.5 Low back pain (principal); J40 Bronchitis, not specified as acute or chronic; E11.9 Type 2 diabetes mellitus without complications; J44.1 Chronic obstructive pulmonary disease with (acute) exacerbation; M62.562 Muscle wasting and atrophy, not elsewhere classified, left lower leg; M62.561 Muscle wasting and atrophy, not elsewhere classified, right lower leg; Z79.899 Other long term (current) drug therapy; Z79.01 Long term (current) use of anticoagulants
CPT/HCPCS: 36000; 36415; 71045; 72131; 80053; 81001; 82962; 83036; 83735; 84484; 84550; 85025; 85610; 85652; 87040; 87086; 93005; 93041; 93268; 94150; 94640; 94760; 94762; 96360; 96361; 96365; 96374; 96375; 99285; J0456; J0696; J2270; J2405; J2930; A9270-GY; G0378

== ENCOUNTER 2019-04-24 15:52 | Observation (INO) | payer MEDICARE, OTHER ==
[2019-04-24] MEDS ORDERED: Sodium Chloride 0.9% 1000 ML 1,000 ML IV STA ×2 (16:13→17:00)
[2019-04-24 16:34] LABS: Glucose,Critical Care 294 (70-110); Lactic Acid 2.5 (0.4-2.0)
--- NOTE | 2019-04-24 16:37 | ERPHSYRPT ---
- History of Present Illness Time Seen by Provider: 04/24/19 16:35 Patient Subjective Stated Complaint: INCREASED WEAKNESS OVER PAST COUPLE DAYS. DRY MOTH, CHILLS. Triage Nursing Assessment: ARRIVED BY AMBULANCE ON STRETCHER. ALERT AND ORIENTED. MILDLY FORGETFUL. STRENTH TO BILATERAL LOWER LEGS MODERATLY WEAK, BUT EQUAL; UPPER EXTREMETY STRENGTH MILDLY WEAK, EQUAL. DENIES PAIN, NAUSEA, VOMITING, CONGESTION OR COUGH. Physician History: Mr. Elis Chisholm 83-year-old male came to the emergency room with complaining of generalized weakness, dry mouth, and lethargic. He denies any fever, chills, nausea, vomiting. His blood sugar has been running in high 400s. Timing/Duration: day(s) (2-3 days) Severity: mild Associated Symptoms: weakness Allergies/Adverse Reactions: penicillin G Allergy (Mild, Verified 06/19/18 18:04) Hives Sulfa (Sulfonamide Antibiotics) [Sulfa(Sulfonamide Antibiotics)] Allergy (Mild, Verified 06/19/18 18:04) Hives Home Medications: Magnesium Oxide 400 mg [Mag-Ox 400] 1 tab PO BID 06/19/18 [History] PANTOPRAZOLE 40 mg Tablet [Protonix 40MG Tablet] 40 mg PO QAM 06/19/18 [ History] Trazodone HCl 50 mg [Desyrel 50 mg] 100 mg PO HS 06/19/18 [History] Felodipine [Plendil] 10 mg PO HS 06/23/18 [History] Lisinopril 20 mg PO DAILY 06/23/18 [History] Apixaban [Eliquis 2.5 mg Tablet] 2.5 mg PO BID 08/23/18 [History] Furosemide 40 mg PO DAILY 08/23/18 [History] Metoprolol Succinate 50 mg [Toprol Xl 50 MG] 50 mg PO DAILY 08/23/18 [ History] Metoprolol Succinate [Toprol Xl] 100 mg PO DAILY 08/23/18 [History] Potassium Chloride 8 meq PO DAILY 08/23/18 [History] Hx Tetanus, Diphtheria Vaccination/Date Given: Yes (2014) Hx Influenza Vaccination/Date Given: No Hx Pneumococcal Vaccination/Date Given: No - Review of Systems Constitutional: Weakness, No Fever, No Chills Eyes: No Symptoms Ears, Nose, & Throat: No Symptoms Respiratory: No Cough, No Dyspnea Cardiac: No Chest Pain, No Edema, No Syncope Abdominal/Gastrointestinal: No Abdominal Pain, No Nausea, No Vomiting, No Diarrhea Genitourinary Symptoms: No Dysuria Musculoskeletal: No Back Pain, No Neck Pain Skin: No Rash Neurological: No Dizziness, No Focal Weakness, No Sensory Changes Psychological: No Symptoms Endocrine: No Symptoms All Other Systems: Reviewed and Negative - Past Medical History Pertinent Past Medical History: Yes Neurological History: Peripheral Neuropathy ENT History: Cataracts, Other Cardiac History: Arrhythmia, Hypertension Respiratory History: No Pertinent History Endocrine Medical History: Diabetes Type II Musculoskeletal History: Arthritis, Other GI Medical History: No Pertinent History History: No Pertinent History Psycho-Social History: No Pertinent History Male Reproductive Disorders: Prostate Cancer, Prostate Problems Other Medical History: pacemaker, 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, BLINDNESS IN LEFT EYE - Past Surgical History Past Surgical History: Yes Neuro Surgical History: No Pertinent History Cardiac: Cardiac Catheterization, Pacemaker Respiratory: No Pertinent History Gastrointestinal: Hernia Repair Genitourinary: No Pertinent History Musculoskeletal: Orthopedic Surgery Male Surgical History: No Pertinent History Other Surgical History: tonsils - Social History Smoking Status: Former smoker Exposure to second hand smoke: No Alcohol Use: None Drug Use: none Patient Lives Alone: Yes Significant Family History: no pertinent family hx - Nursing Vital Signs Nursing Vital Signs: Initial Vital Signs Temperature 99.6 F 04/24/19 15:53 Pulse Rate 90 04/24/19 15:53 Respiratory Rate 16 04/24/19 15:53 Blood Pressure 143/74 04/24/19 15:53 O2 Sat by Pulse Oximetry 96 04/24/19 15:53 - Physical Exam General Appearance: no apparent distress, alert Eye Exam: PERRL/EOMI, eyes nml inspection Ears, Nose, Throat Exam: normal ENT inspection, TMs normal, pharynx normal, moist mucous membranes Neck Exam: normal inspection, non-tender, supple, full range of motion Respiratory Exam: normal breath sounds, lungs clear, No respiratory distress Cardiovascular Exam: regular rate/rhythm, normal heart sounds, normal peripheral pulses Gastrointestinal/Abdomen Exam: soft, normal bowel sounds, No tenderness, No mass Back Exam: normal inspection, normal range of motion, No CVA tenderness, No vertebral tenderness Extremity Exam: normal inspection, normal range of motion, pelvis stable Neurologic Exam: alert, oriented x 3, cooperative, normal mood/affect, nml cerebellar function, nml station & gait, sensation nml, No motor deficits Skin Exam: normal color, warm, dry, No rash Lymphatic Exam: No adenopathy SpO2: 96 - Course Nursing assessment & vital signs reviewed: Yes Rhythm Strip: Normal Sinus Rhythm - Radiology Exams Chest X-ray Interpretation: Reviewed by me Ordered Tests: Active Orders 24 hr Category Date Time Status Accucheck STAT Care 04/24/19 16:13 Active Performance Instructor STAT Care 04/24/19 16:16 Active EKG-ER Only STAT Care 04/24/19 16:13 Active CHEST 1 VIEW (PORTABLE) Stat Exams 04/24/19 16:29 Taken CBC W DIFF Stat Lab 04/24/19 16:25 Completed CMP Stat Lab 04/24/19 16:25 Completed Glucose,Critical Care Urgent Lab 04/24/19 16:30 Results Lactic Acid Urgent Lab 04/24/19 16:30 Results MAGNESIUM Stat Lab 04/24/19 16:25 Completed Manual Differential NC Stat Lab 04/24/19 16:25 Completed TROPONIN Stat Lab 04/24/19 16:25 Completed UA W/RFX UR CULTURE Stat Lab 04/24/19 16:13 Uncollected Medication Summary Discontinued Medications Generic Name Dose Route Start Last Admin Trade Name Damian PRN Reason Stop Dose Admin Sodium Chloride 1,000 mls @ 999 mls/hr 04/24/19 16:13 04/24/19 17:00 Sodium Chloride 0.9% 1000 Ml IV 04/24/19 17:13 999 mls/hr .Q1H1M STA Administration Sodium Chloride 1,000 mls @ 999 mls/hr 04/24/19 17:00 04/24/19 17:14 Sodium Chloride 0.9% 1000 Ml IV 04/24/19 18:00 Not Given .Q1H1M STA Sodium Chloride Confirm 04/24/19 16:59 Sodium Chloride 0.9% 1000 Ml Administered 04/24/19 17:00 Dose 1,000 mls @ ud .ROUTE .STK-MED ONE Lab/Rad Data: Laboratory Result Diagrams 04/24/19 16:25 04/24/19 16:25 Laboratory Results 04/24/19 04/24/19 04/24/19 Range/Units 16:30 16:25 16:25 WBC (4.0-10.5) K/mm3 RBC (4.1-5.6) M/mm3 Hgb (12.5-18.0) gm/dl Hct (42-50) % MCV (78-100) fl MCH (26-32) pg MCHC (32-36) g/dl RDW (11.5-14.0) % Plt Count (150-450) K/mm3 MPV (6-9.5) fl Segmented Neutrophils (36.-66.) % Band Neutrophils (0.0-2.0) % Lymphocytes (Manual) (24-44) % Monocytes (Manual) (0.0-12.0) % Atypical Lymphocytes % Platelet Estimate (NORMAL) RBC Morphology Sodium 135 L (137-145) mmol/L Potassium 4.3 (3.5-5.1) mmol/L Chloride 96 L (98-107) mmol/L Carbon Dioxide 31 H (22-30) mmol/L Anion Gap 13.1 (5-15) MEQ/L BUN 25 H (9-20) mg/dL Creatinine 1.24 (0.66-1.25) mg/dL Estimated GFR 58.9 ML/MIN Glucose 294 H 298 H (74-106) mg/dL Lactic Acid 2.5 H (0.4-2.0) Calcium 8.7 (8.4-10.2) mg/dL Magnesium 1.8 (1.6-2.3) mg/dL Total Bilirubin 1.10 (0.2-1.3) mg/dL AST 22 (17-59) U/L ALT 24 (0-50) U/L Alkaline Phosphatase 87 (38-126) U/L Troponin I 0.074 H* (0.000-0.034) ng/mL Serum Total Protein 6.1 L (6.3-8.2) g/dL Albumin 3.5 (3.5-5.0) g/dL 04/24/19 Range/Units 16:25 WBC 14.3 H (4.0-10.5) K/mm3 RBC 3.68 L (4.1-5.6) M/mm3 Hgb 12.3 L (12.5-18.0) gm/dl Hct 36.7 L (42-50) % MCV 99.7 (78-100) fl MCH 33.4 H (26-32) pg MCHC 33.5 (32-36) g/dl RDW 13.2 (11.5-14.0) % Plt Count 153 (150-450) K/mm3 MPV 9.6 H (6-9.5) fl Segmented Neutrophils 76 H (36.-66.) % Band Neutrophils 14 H (0.0-2.0) % Lymphocytes (Manual) 7 L (24-44) % Monocytes (Manual) 1 (0.0-12.0) % Atypical Lymphocytes 2 % Platelet Estimate NORMAL (NORMAL) RBC Morphology NORMAL Sodium (137-145) mmol/L Potassium (3.5-5.1) mmol/L Chloride (98-107) mmol/L Carbon Dioxide (22-30) mmol/L Anion Gap (5-15) MEQ/L BUN (9-20) mg/dL Creatinine (0.66-1.25) mg/dL Estimated GFR ML/MIN Glucose (74-106) mg/dL Lactic Acid (0.4-2.0) Calcium (8.4-10.2) mg/dL Magnesium (1.6-2.3) mg/dL Total Bilirubin (0.2-1.3) mg/dL AST (17-59) U/L ALT (0-50) U/L Alkaline Phosphatase (38-126) U/L Troponin I (0.000-0.034) ng/mL Serum Total Protein (6.3-8.2) g/dL Albumin (3.5-5.0) g/dL - Progress Progress: improved Progress Note: 04/24/19 17:49 Dr Gera peng covering for Dr Velazquez contacted. He advised that patient can be kept at [facility] for observation and he will follow EKGs. Dr Deluna covering for Dr Stout notified. She agreed for observation. Discussed with : Karin Will see patient in: hospital (observation) Counseled pt/family regarding: lab results, diagnosis, need for follow-up, rad results - Departure Departure Disposition: Observation Clinical Impression: Non-ST elevation [place] (NSTEMI), Elevated troponin I level, Essential hypertension Atrial fibrillation Qualifiers: Atrial fibrillation type: unspecified chronic Qualified Code(s): I48.20 - Chronic atrial fibrillation, unspecified Diabetes mellitus Qualifiers: Diabetes mellitus type: type 2 Diabetes mellitus long-term insulin use: with long-term use Diabetes mellitus complication status: with hyperglycemia Qualified Code(s): E11.65 - Type 2 diabetes mellitus with hyperglycemia Condition: Stable Critical Care Time: Yes Critical Care Time(excluding separately billable procedures): Critical 30-74 mins Referrals: JANNY STOUT [Primary Care Provider] -
[2019-04-24 16:51] LABS: ALBUMIN 3.5 g/dL (3.5-5.0); ANION GAP 13.1 MEQ/L (5-15); BILIRUBIN,TOTAL 1.1 mg/dL (0.2-1.3); Calcium 8.7 mg/dL (8.4-10.2); Creatinine 1 1.24 mg/dL (0.66-1.25); MAGNESIUM 1.8 mg/dL (1.6-2.3); Potassium 4.3 mmol/L (3.5-5.1); Total Protein 6.1 g/dL (6.3-8.2)
[2019-04-24] MEDS ORDERED: Sodium Chloride 0.9% 1000 ML 1,000 ML ONE (16:59)
[2019-04-24 17:07] LABS: Hematocrit 36.7 % (42-50); Hemoglobin 12.3 gm/dl (12.5-18.0); Mean Cell Volume 99.7 fl (78-100); Mean Corpuscular Hemoglobin 33.4 pg (26-32); Mean Corpuscular Hgb Concent. 33.5 g/dl (32-36); Mean Platelet Volume 9.6 fl (6-9.5); Platelet Count 153 K/mm3 (150-450); Red Blood Count 3.68 M/mm3 (4.1-5.6); Red Cell Distribution Width 13.2 % (11.5-14.0); White Blood Count 14.3 K/mm3 (4.0-10.5)
[2019-04-24 17:35] LABS: ATYPICAL LYMPHS 2 %; BAND 14 % (0.0-2.0); Lymphocytes 7 % (24-44); Monocyte 1 % (0.0-12.0); Neutrophils 76 % (36.-66.); Platelet Estimate NORMAL (NORMAL); Total Cells Counted 100
[2019-04-24] MEDS ORDERED: Senokot-S Tablet PO PRN (18:11)
[2019-04-24] MEDS ORDERED: MAALOX ES 30 ML UNIT DOSE PO PRN (18:11)
[2019-04-24] MEDS ORDERED: MILK OF MAGNESIA 30 ML PO PRN (18:11)
[2019-04-24] MEDS ORDERED: Sodium Chloride 0.9% 500 ML 500 ML IV SCH (18:11)
[2019-04-24] MEDS ORDERED: TYLENOL 325 MG PO PRN (18:11)
[2019-04-24] MEDS ORDERED: Zofran 4 MG/2 ML VIAL IV PRN (18:11)
[2019-04-24 19:05] LABS: Lactic Acid 2.6 (0.4-2.0)
--- NOTE | 2019-04-24 20:51 | XRAY ---
Indication: Weakness. Comparison: August 23, 2018. Portable chest demonstrates new minimal right base fibrosis/scarring. No focal infiltrate, consolidation, or large effusion. Heart remains enlarged again with left-sided pacemaker and small hiatal hernia. Bony thorax intact again with mild osteopenia and degenerative changes. Impression: Nonacute chest with chronic features.
[2019-04-24] MEDS: DESYREL 50 MG PO SCH (21:15)
[2019-04-24] MEDS: MAG-OX 400 PO SCH (21:15)
[2019-04-24] MEDS: DELTASONE 20 MG PO SCH (21:15)
[2019-04-24] MEDS: Pepcid 20 MG PO SCH (21:15)
[2019-04-24] MEDS: Zestril 20 MG PO SCH (21:15)
[2019-04-24] MEDS: Protonix 40MG Tablet PO SCH (21:15)
[2019-04-24] MEDS: Toprol Xl 100 MG PO SCH (21:16)
[2019-04-24] MEDS: ELIQUIS 2.5 MG TABLET PO SCH (21:16)
[2019-04-24] MEDS: NovoLOG Insulin SQ PRN (21:27)
[2019-04-25 00:17] LABS: Appearance CLOUDY (CLEAR); Bacteria FEW /HPF (NEGATIVE); Bilirubin NEGATIVE (NEGATIVE); Blood MODERATE Ery/ul (0-5); Crystals Unidentified 25-50 /HPF (NEGATIVE); Glucose >=500 mg/dL (NEGATIVE); Ketones NEGATIVE (NEGATIVE); Leukocyte Esterase LARGE (NEGATIVE); Mucus SLIGHT /HPF (NEGATIVE); Nitrite NEGATIVE (NEGATIVE); Non-Squamous Epithelial Cells RARE /HPF (FEW); Protein,Urine Dip 100 (Negative); Specific Gravity 1.012 (1.005-1.025); Urobilinogen NEGATIVE mg/dL (0-1); WBC >100 /HPF (0-5)
[2019-04-25 06:35] LABS: Risk Ratio 4.5
[2019-04-25] MEDS: NovoLOG Insulin SQ PRN ×4 (08:30→21:19)
[2019-04-25] MEDS ORDERED: MEDICATION INTERVENTION MC SCH (09:00)
[2019-04-25] MEDS: Pepcid 20 MG PO SCH (09:46)
[2019-04-25] MEDS: Lasix 40 MG PO SCH ×2 (09:46→17:40)
[2019-04-25] MEDS: ELIQUIS 2.5 MG TABLET PO SCH ×2 (09:47→21:12)
[2019-04-25] MEDS: MAG-OX 400 PO SCH (09:47)
[2019-04-25] MEDS: Levofloxacin 500MG/100ML D5W 500 MG/100 ML BAG IV SCH (09:47)
[2019-04-25] MEDS: Toprol Xl 100 MG PO SCH ×2 (09:47→21:12)
[2019-04-25] MEDS: Protonix 40MG Tablet PO SCH (09:47)
[2019-04-25] MEDS: DELTASONE 20 MG PO SCH (09:47)
[2019-04-25] MEDS: Zestril 20 MG PO SCH (09:47)
[2019-04-25] MEDS: Klor Con 10 MEQ PO SCH (09:47)
[2019-04-25] MEDS ORDERED: NON-FORMULARY ITEM (Potassium Chloride [Potassium Chloride] 8 MEQ) PO SCH (10:00)
[2019-04-25] MEDS ORDERED: NORVASC 5 MG PO ONE (11:56)
[2019-04-25] MEDS: ECOTRIN 81 MG PO SCH (12:17)
[2019-04-25] MEDS: Lantus Insulin SQ SCH (12:18)
[2019-04-25] MEDS: DESYREL 50 MG PO SCH (21:12)
[2019-04-26 04:53] LABS: Hematocrit 32.9 % (42-50); Hemoglobin 11.2 gm/dl (12.5-18.0); Mean Cell Volume 98.8 fl (78-100); Mean Corpuscular Hemoglobin 33.6 pg (26-32); Mean Platelet Volume 9.9 fl (6-9.5); Platelet Count 137 K/mm3 (150-450); Red Blood Count 3.33 M/mm3 (4.1-5.6); Red Cell Distribution Width 12.9 % (11.5-14.0); White Blood Count 6.8 K/mm3 (4.0-10.5)
[2019-04-26 05:12] LABS: ANION GAP 10.9 MEQ/L (5-15); BLOOD UREA NITROGEN 24 mg/dL (9-20); CHLORIDE 100 mmol/L (98-107); Calcium 8.8 mg/dL (8.4-10.2); Carbon Dioxide 31 mmol/L (22-30); Creatinine 1 0.84 mg/dL (0.66-1.25); Glucose 206 mg/dL (74-106); Potassium 3.3 mmol/L (3.5-5.1); SODIUM 139 mmol/L (137-145)
[2019-04-26 08:08] LABS: Eosinophil 1 % (0.00-3.0); Lymphocytes 19 % (24-44); Monocyte 6 % (0.0-12.0); Neutrophils 74 % (36.-66.); Platelet Estimate DECREASED (NORMAL); Total Cells Counted 100
[2019-04-26] MEDS: Lantus Insulin SQ SCH (08:23)
[2019-04-26] MEDS: NovoLOG Insulin SQ PRN ×2 (08:25→12:09)
[2019-04-26] MEDS ORDERED: NORVASC 5 MG PO SCH (10:00)
[2019-04-26] MEDS: Pepcid 20 MG PO SCH (10:17)
[2019-04-26] MEDS: MAG-OX 400 PO SCH (10:17)
[2019-04-26] MEDS: Toprol Xl 100 MG PO SCH (10:18)
[2019-04-26] MEDS: Protonix 40MG Tablet PO SCH (10:18)
[2019-04-26] MEDS: Lasix 40 MG PO SCH (10:19)
[2019-04-26] MEDS: ECOTRIN 81 MG PO SCH (10:19)
[2019-04-26] MEDS: Zestril 20 MG PO SCH (10:19)
[2019-04-26] MEDS: DELTASONE 20 MG PO SCH (10:20)
[2019-04-26] MEDS: Klor Con 10 MEQ PO SCH (10:20)
[2019-04-26] MEDS: ELIQUIS 2.5 MG TABLET PO SCH (10:20)
[2019-04-26] MEDS: Levofloxacin 500MG/100ML D5W 500 MG/100 ML BAG IV SCH (10:46)
[2019-04-26 12:55] VITALS: BP 156/80; PULSE 80; O2SAT 96
--- NOTE | 2019-04-26 13:04 | CONS ---
CONSULT DATE: 04/26/2019 BRIEF HISTORY: This is an 83 year-old male who was seen because of mildly elevated troponin I. The patient was admitted primarily for weakness of the lower extremities. He had a serial troponin I which was mildly elevated. The highest was 0.074 and this trending down. He denies any chest pain. He had previous cardiac catheterization done about 22 years ago and this showed normal coronaries. In the interim he has been doing relatively well. He has been see in the office on a regular basis. The main problem is peripheral neuropathy which is chronic. He states that prior to this admission he did have some garbled speech but on examination his speech is intelligible. There are no any other motor deficits. CARDIAC RISK FACTORS: Diabetes. History of hypertension. He is a reformed smoker. FAMILY HISTORY: Negative for premature coronary artery disease. He has history of hyperlipidemia. REVIEW OF SYSTEMS: ROUTE DRIVER: As mentioned he has chronic peripheral neuropathy. Diagnosed with Charcot-Bella Disorder. RESPIRATORY: Occasional cough. He has occasional postnasal drainage. GI: He has history of peptic ulcer disorder and hiatal hernia. : He has a history of prostate cancer. No recent dysuria or hematuria. PERIPHERAL VASCULAR: No history of deep venous thrombosis. No claudication. SOCIAL HISTORY: He denies any significant alcohol intake. 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 PAST SURGICAL HISTORY: Pacemaker. PHYSICAL EXAMINATION: The blood pressure is 140/70 with a heart rate of 60, respirations about 16. GENERAL: The patient is an elderly male who is alert, oriented, who is conversant, and who is not in any form of distress. HEENT: Unremarkable. NECK: No significant JVD. No carotid bruit. CHEST: he breath sounds are clear bilaterally. There are no rhonchi or rales. CARDIAC: Heart tones are distant. The rhythm is regular. There is no audible gallop. There is a pacemaker in the infraclavicular area. ABDOMEN: Soft with normal bowel sounds, peripheral pulses are strong. EXTREMITIES: There is bilateral mild edema which is pitting mostly confined to around the ankle. The distal pulses are diminished. LAB DATA AND DIAGNOSTIC TESTS: EKG showed pacemaker rhythm. IMPRESSION: 1) The elevated troponin I maybe secondary to an underlying ischemia. Currently he does not have any angina and there is no evidence of ACS (acute coronary syndrome). Will continue with medical therapy and modification of cardiac risk factors. 2) Status post pacemaker. 3) Peripheral neuropathy that is chronic. 4) History of hypertension. His hemodynamics and rhythm are stable, will see him in the clinic for follow up.
--- NOTE | 2019-04-26 14:05 | HP ---
NOTE: Report dictated under discharge summary work type not history and physical. HISTORY OF PRESENT ILLNESS: This is an 83 year-old patient of Dr. Law who presented to the emergency department by EMS. He states when he woke up he had more pain in his legs instead of just being from his knee down he had some pain in his thighs. He was not able to get up out of his chair. He reports he is wheelchair bound but he is usually able to transfer. He reports his mouth felt dry. His ankles have been swollen. He was disoriented. He feels like his weakness is improved, is not disoriented anymore. He reports the pain is back to the baseline where it usually is. He reports history of being told that he needs oxygen at night but then deciding that he did not want this. He also reports a history of having pacemaker placed. His silver steward is Dr. Feng. His pacemaker doctor is Dr. Saud Dahl. He denies any recent heart catheterizations or stress test. He reports that he had a heart cath when he was 60 years old and did not have any stents placed at that time. He reports a history of abnormal rhythm and being on Eliquis for this but not wanting to take the full dose that they wanted him to take so they agreed to 2.5 mg twice a day. He reports he had no chest pain, no shortness of breath, no nausea or vomiting. No arm pain. No jaw pain. He is wheelchair bound at baseline due to [id number]-Odelm. He reports that he is homebound. He and his both stay at home and neither drive. He has had home health with medicine assist in the past. He does have sons and a daughter in the area. He does not use a urinary catheter. REVIEW OF SYSTEMS: As noted in history of present illness. MEDICATIONS: Please see the home medication reconciliation list which I reviewed. ALLERGIES: PENICILLIN. SULFA. PAST MEDICAL HISTORY: [id number]. Heart arrhythmia. Pacemaker. Gastroesophageal reflux. Hypertension. Insomnia. PAST SURGICAL HISTORY: He reports remote history of hernia surgery. SOCIAL HISTORY: He is . He and his live at home. They are homebound and neither one drives. FAMILY HISTORY: Noncontributory. PHYSICAL EXAMINATION: VITAL SIGNS: Temperature current 97.4F, temperature max 99.6F, heart rate 60, respiratory rate 20, blood pressure 152/65. Oxygen saturation 83% on room air at night. He was placed on OxyMask with oxygen saturation to 98%. During the day he was 94% on 2 liters. GENERAL: The patient is a pleasant talkative man sitting up in bed in no acute distress. His is at the bedside. CVS: He has a regular rate and rhythm. No murmurs, gallops or rubs are appreciated. Pacemaker in place. CHEST: Lungs clear to auscultation bilaterally. No crackles or wheezes are appreciated. ABDOMEN: Soft, nontender, nondistended with normal bowel sounds. EXTREMITIES: No clubbing, cyanosis or edema. He has a scrape on his right lower leg with a Band-Aid over this. Mild swelling of his ankles bilaterally. LABORATORY DATA AND TESTS: On admission his troponin was 0.074, repeat troponin this a.m. is 0.049. Sodium 135, chloride 96, glucose 298. Hemoglobin A1C 9.8. Lactic acid was 2.6 on admission and 1.2 now. White blood cell count 14,300, hemoglobin 12.3. PLT count was normal. He had 76% neutrophils, 14% bands. UA which was obtained after he left the emergency room was greater than 100 white blood cells, 16-25 red blood cells, few bacteria. Urine cultures in lab. EKG with a paced rhythm. Chest x-ray was read as nonacute chest with chronic features. ASSESSMENT AND PLAN: 1) NON-ST ELEVATION MYOCARDIAL INFARCTION: I asked Dr. Santacruz who was working in the emergency room to make sure his silver steward was contacted. Dr. Ector Dahl was mason tender restoration labor and per Dr. Santacruz's notes, EKG was going to be faxed to him and he is going to follow up. I have asked for formal cardiology consult. I started the patient on 81 mg aspirin daily, will continue with blood pressure control. His cholesterol panel looked fairly good. 2) URINARY TRACT INFECTION: I started him on Levaquin this morning, will continue to follow his urine culture. 3) DIABETES MELLITUS TYPE 2, UNCONTROLLED: I plan to start Lantus and a low dose sliding scale. It does not look like he is on any medicines for diabetes at home so perhaps this may be a new diagnosis for him. His hemoglobin A1C was above 9. 4) NOCTURNAL HYPOXIA: I have asked for an overnight pulse oximetry test. 5) [id number]: Will continue with his home medications. 6) HYPERTENSION: Will continue his home medication as the pharmacy has noted that they do not have felodipine so we will write a new order for amlodipine. 7) CODE STATUS: The patient does not want to have any heroic measures taken. He does not want to be put on a breathing machine or have chest compressions done if something would happen suddenly that his heart would stop beating or he would stop breathing. It was confirmed with the patient with his in attendance.
== END 2019-04-26 15:15 | disposition home or self-care (01) ==
LOC: ED 15:52 → MED SURG 18:11
PROVIDERS: ADMIT Internal Medicine; ATTEND Family Medicine
DX: I21.4 Non-ST elevation (NSTEMI) myocardial infarction (principal); N39.0 Urinary tract infection, site not specified; E11.65 Type 2 diabetes mellitus with hyperglycemia; R09.02 Hypoxemia; R79.89 Other specified abnormal findings of blood chemistry; I10 Essential (primary) hypertension; G60.0 Hereditary motor and sensory neuropathy; Z95.0 Presence of cardiac pacemaker; G62.9 Polyneuropathy, unspecified; Z79.899 Other long term (current) drug therapy
CPT/HCPCS: 36415; 71045; 80048; 80053; 80061; 81001; 82947; 82962; 83036; 83605; 83721; 83735; 84484; 85025; 87077; 87086; 87186; 93005; 93041; 93268; 94760; 94762; 96360; 99285; 99291; G0378; J1956; A9270-GY

== ENCOUNTER 2020-11-02 18:42 | Inpatient (IN) | payer MEDICARE, OTHER ==
[2020-11-02] MEDS ORDERED: Sodium Chloride 0.9% 1000 ML 1,000 ML IV SCH (19:15)
[2020-11-02] MEDS ORDERED: Sodium Chloride 0.9% 1000 ML 1,000 ML ONE (19:30)
[2020-11-02 19:41] LABS: Absolute Neutrophil Ct (ANC) 8.51 (1.4-6.9); BASOPHIL % 0.3 % (0.0-0.4); Basophil (Absolute #) 0.03 (0-0.4); Eosinophil % 0.2 % (0.00-5.0); Eosinophil (Absolute #) 0.02 (0-0.5); Hematocrit 33.5 % (42-50); Lymphocyte (Absolute #) 1.18 (1.0-4.6); Lymphocytes % 11.6 % (24.0-44.0); Mean Cell Volume 98.2 fl (78-100); Mean Corpuscular Hemoglobin 32.3 pg (26-32); Mean Corpuscular Hgb Concent. 32.8 g/dl (32-36); Monocyte (Absolute #) 0.47 (0.0-1.3); Monocytes % 4.6 % (0.0-12.0); Neutrophil % 83.3 % (36.0-66.0); Platelet Count 135 K/mm3 (150-450); Red Blood Count 3.41 M/mm3 (4.1-5.6); Red Cell Distribution Width 12.6 % (11.5-14.0); White Blood Count 10.2 K/mm3 (4.0-10.5)
[2020-11-02 19:58] LABS: Appearance CLEAR (CLEAR); Bilirubin NEGATIVE (NEGATIVE); Blood NEGATIVE Ery/ul (0-5); Glucose NEGATIVE (NEGATIVE); Hyaline Casts 0-2 /LPF (0-2); Ketones NEGATIVE (NEGATIVE); Leukocyte Esterase NEGATIVE (NEGATIVE); Nitrite NEGATIVE (NEGATIVE); Protein,Urine Dip NEGATIVE (Negative); Specific Gravity 1.011 (1.005-1.025); Urobilinogen NEGATIVE mg/dL (0-1)
[2020-11-02 20:03] LABS: ALBUMIN 3.5 g/dL (3.5-5.0); ANION GAP 16.7 MEQ/L (5-15); BILIRUBIN,TOTAL 0.5 mg/dL (0.2-1.3); Calcium 8.4 mg/dL (8.4-10.2); Creatinine 1 1.76 mg/dL (0.66-1.25); EST GLOMERULAR FILTRATION RATE 39.2 ML/MIN; Potassium 3.2 mmol/L (3.5-5.1)
[2020-11-02 20:14] LABS: INFLUENZA A NEGATIVE (NEGATIVE); INFLUENZA B NEGATIVE (NEGATIVE)
--- NOTE | 2020-11-02 21:52 | ERPHSYRPT ---
- History of Present Illness Time Seen by Provider: 11/02/20 18:55 Exam Limitations: no limitations Patient Subjective Stated Complaint: Pt states "I have been pretty weak for the past couple of days and my belly has been hurting." Triage Nursing Assessment: PT presented alert and oriented X3, skin pwd Pt able to speak in clear full sentencse pt hard of heaing, warm to touch. Pt in no apparent respiratory distress. Physician History: Patient is a 84-year-old male presents to our ED with his daughter for evaluation of fever and abdominal pain. Patient has been experiencing generalized weakness as well. Patient states symptoms started approximately 2 days ago. Patient states his abdominal pain started after starting oral ciprofloxacin for pressure ulcers. Patient has had decreased p.o. He has been feeling generally weak. No nausea no vomiting. Patient had diarrhea approximately 5 days ago. However now he has not had a bowel movement in 2 days. Symptoms are mild to moderate in intensity. Symptoms are progressive. No specific worsening or improving factors. Patient voices no other complaints or concerns at this time. Timing/Duration: day(s) (2 days) Severity: moderate Modifying Factors: Improves With: nothing Associated Symptoms: abdominal pain, fever, No nausea, No vomiting, No shortness of breath, No cough, No headaches, No loss of appetite, No malaise, No rash, No syncope, No seizure, No weakness Allergies/Adverse Reactions: penicillin G Allergy (Mild, Verified 06/19/18 18:04) Hives Sulfa (Sulfonamide Antibiotics) [Sulfa(Sulfonamide Antibiotics)] Allergy (Mild, Verified 06/19/18 18:04) Hives Home Medications: PANTOPRAZOLE 40 mg Tablet [Protonix 40MG Tablet] 40 mg PO QAM 06/19/18 [History] Trazodone HCl 50 mg [Desyrel 50 mg] 100 mg PO HS 06/19/18 [History] Felodipine [Plendil] 10 mg PO HS 06/23/18 [History] lisinopriL [Lisinopril] 20 mg PO DAILY 06/23/18 [History] Apixaban [Eliquis 2.5 mg Tablet] 2.5 mg PO BID 08/23/18 [History] Furosemide 40 mg PO BID 08/23/18 [History] Metoprolol Succinate [Toprol Xl] 100 mg PO BID 08/23/18 [History] Potassium Chloride 8 meq PO BID 08/23/18 [History] Famotidine [Pepcid] 40 mg PO DAILY 04/24/19 [History] predniSONE [Prednisone] 10 mg PO UD 04/24/19 [History] Metformin HCl 500 mg [Glucophage 500 MG] 500 mg PO DAILY 11/03/20 [History] Nystatin Powder 15 gm [Nystop Powder 15 gm] 1 g TOP BID 11/03/20 [History] Hx Tetanus, Diphtheria Vaccination/Date Given: Yes (2014) Hx Influenza Vaccination/Date Given: No Hx Pneumococcal Vaccination/Date Given: No Immunizations Up to Date: Yes Travel Risk - International Travel Have you traveled outside of the country in past 3 weeks: No - Coronavirus Screening Close contact with a COVID-19 positive Pt in past 14-21 Days: No - Vaccine Status Have you recieved a Covid-19 vaccination: Yes 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: [employer] - Vaccination Dates Date of 2cond Vaccination (if applicable): october if Unknown: september and october - Review of Systems Constitutional: No Symptoms Eyes: No Symptoms Ears, Nose, & Throat: No Symptoms Respiratory: No Symptoms, No Cough, No Dyspnea Cardiac: No Symptoms, No Chest Pain, No Edema, No Syncope Abdominal/Gastrointestinal: No Symptoms, No Abdominal Pain, No Nausea, No Vomiting, No Diarrhea Genitourinary Symptoms: No Symptoms, No Dysuria Musculoskeletal: No Symptoms, No Back Pain, No Neck Pain Skin: No Symptoms, No Rash Neurological: No Symptoms, No Dizziness, No Focal Weakness, No Sensory Changes Psychological: No Symptoms Endocrine: No Symptoms Hematologic/Lymphatic: No Symptoms Immunological/Allergic: No Symptoms All Other Systems: Reviewed and Negative - Past Medical History Pertinent Past Medical History: Yes Neurological History: Peripheral Neuropathy ENT History: Cataracts, Other Cardiac History: Arrhythmia, Hypertension Respiratory History: No Pertinent History Endocrine Medical History: Diabetes Type II Musculoskeletal History: Arthritis, Other GI Medical History: No Pertinent History History: No Pertinent History Psycho-Social History: No Pertinent History Male Reproductive Disorders: Prostate Cancer, Prostate Problems Other Medical History: pacemaker, 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, BLINDNESS IN LEFT EYE - Past Surgical History Past Surgical History: Yes Neuro Surgical History: No Pertinent History Cardiac: Cardiac Catheterization, Pacemaker Respiratory: No Pertinent History Gastrointestinal: Hernia Repair Genitourinary: No Pertinent History Musculoskeletal: Orthopedic Surgery Male Surgical History: No Pertinent History Other Surgical History: tonsils - Social History Smoking Status: Former smoker Exposure to second hand smoke: No Alcohol Use: None Drug Use: none Patient Lives Alone: Yes Significant Family History: no pertinent family hx - Nursing Vital Signs Nursing Vital Signs: Initial Vital Signs Temperature 101.4 F 11/02/20 18:44 Pulse Rate 66 11/02/20 18:44 Respiratory Rate 22 11/02/20 18:44 Blood Pressure 103/48 11/02/20 18:44 O2 Sat by Pulse Oximetry 93 L 11/02/20 18:44 Pain Scale Pain Intensity 0 - Physical Exam General Appearance: no apparent distress, alert, other Eye Exam: PERRL/EOMI, eyes nml inspection Ears, Nose, Throat Exam: normal ENT inspection, TMs normal, pharynx normal, moist mucous membranes, dry mucous membranes Neck Exam: normal inspection, non-tender, supple, full range of motion Respiratory Exam: normal breath sounds, lungs clear, No respiratory distress Cardiovascular Exam: regular rate/rhythm, normal heart sounds, normal peripheral pulses Gastrointestinal/Abdomen Exam: soft, normal bowel sounds, No tenderness, No mass Back Exam: normal inspection, normal range of motion, No CVA tenderness, No vertebral tenderness Extremity Exam: normal inspection, normal range of motion, pelvis stable Neurologic Exam: alert, oriented x 3, cooperative, normal mood/affect, sensation nml, No motor deficits Skin Exam: normal color, warm, dry, No rash Lymphatic Exam: No adenopathy SpO2 Interpretation: normal SpO2: 95 O2 Delivery: Room Air - Course Nursing assessment & vital signs reviewed: Yes EKG Interpreted by Me: RATE (70), Other (atrial sensed ventricular paced rhythm) - Radiology Exams Chest X-ray Interpretation: Interpreted by me (Consolidation or infiltrate. Osteopenia. Intact bony thorax. Normal cardiac silhouette. Tortuous aorta with calcifications. Pacemaker, atelectasis at bases.) - CT Exams Abdomen/Pelvis CT Interpretation: Tele-radiologist Report (CT scan reveals early diverticulitis.) Ordered Tests: Active Orders 24 hr Category Date Time Status Bedrest ROUTINE Activity 11/03/20 01:28 Active Code Status Order ROUTINE Care 11/03/20 01:28 Active IV Care Q6H Care 11/03/20 01:28 Active IV Insertion STAT Care 11/02/20 19:02 Completed Neuro Checks Q4H Care 11/03/20 01:[address] in Observation ROUTINE Care 11/03/20 01:28 Active Pulse Oximetry (ED) STAT Care 11/02/20 19:04 Completed Telemetry q6h Care 11/03/20 01:28 Active Consistent Carbohydrate Diet 1800 Calorie Diet 11/03/20 Breakfast Active ABDOMEN AND PELVIS W/0 CONTRAS [CT] Stat Exams 11/02/20 19:02 Taken CHEST 1 VIEW (PORTABLE) Stat Exams 11/02/20 21:40 Taken BLOOD CULTURE Stat Lab 11/02/20 19:30 Received CBC W DIFF AM.LAB Lab 11/03/20 04:25 Completed CBC W DIFF Stat Lab 11/02/20 19:20 Completed CMP AM.LAB Lab 11/03/20 04:25 Completed CMP Stat Lab 11/02/20 19:20 Completed INFLUENZA A+B NOEL Stat Lab 11/02/20 19:30 Completed LIPASE Stat Lab 11/02/20 19:20 Completed Lactic Acid Stat Lab 11/02/20 19:19 Completed Lactic Acid Stat Lab 11/02/20 21:33 Completed TROPONIN Q3H Lab 11/02/20 19:20 Completed TROPONIN Q3H Lab 11/02/20 22:00 Completed TROPONIN Q3H Lab 11/03/20 01:40 Completed TROPONIN Q3H Lab 11/03/20 04:25 Completed UA W/RFX UR CULTURE Stat Lab 11/02/20 19:15 Completed Pulse Oximetry CONTINUOUS RT 11/03/20 01:28 Active Transfer Order Routine Transfer 11/03/20 Completed Medication Summary Generic Name Dose Route Start Last Admin Trade Name Freq PRN Reason Stop Dose Admin Acetaminophen 650 mg 11/03/20 04:29 11/03/20 04:36 Tylenol 325 Mg PO 12/03/20 04:28 650 mg Q4H PRN PRN Administration PAIN AND/OR FEVER Sodium Chloride 1,000 mls @ 100 mls/hr 11/03/20 01:28 11/03/20 05:28 Sodium Chloride 0.9% 1000 Ml IV 12/03/20 01:27 100 mls/hr .Q10H VINEET Administration Metronidazole 500 mg in 100 mls @ 200 mls/hr 11/03/20 06:00 11/03/20 05:28 Flagyl 500 Mg Ivpb IV 12/03/20 05:59 200 mls/hr Q8HT VINEET Administration Morphine Sulfate 2 mg 11/03/20 01:28 Morphine Sulfate 2 Mg Inj IV 11/08/20 01:27 Q4H PRN PRN PAIN Pantoprazole Sodium 40 mg 11/03/20 10:00 Protonix 40 Mg Iv IV 12/03/20 09:59 Q24H10 VINEET Discontinued Medications Generic Name Dose Route Start Last Admin Trade Name Freq PRN Reason Stop Dose Admin Sodium Chloride 1,000 mls @ 100 mls/hr 11/02/20 19:15 11/02/20 19:30 Sodium Chloride 0.9% 1000 Ml IV 12/02/20 19:14 100 mls/hr .Q10H VINEET Administration Metronidazole 500 mg in 100 mls @ 200 mls/hr 11/02/20 21:53 11/02/20 22:27 Flagyl 500 Mg Ivpb IV 11/02/20 22:22 200 mls/hr STAT STA 200 mls/hr Administration Levofloxacin/Dextrose 500 mg in 100 mls @ 100 mls/hr 11/02/20 21:54 11/02/20 23:03 Levofloxacin 500mg/100ml D5w IV 11/02/20 22:53 100 mls/hr STAT STA 100 mls/hr Administration Metronidazole Confirm 11/02/20 22:25 Flagyl 500 Mg Ivpb Administered 11/02/20 22:26 Dose 500 mg in 100 mls @ ud IV .STK-MED ONE Levofloxacin/Dextrose Confirm 11/02/20 22:25 Levofloxacin 500mg/100ml D5w Administered 11/02/20 22:26 Dose 500 mg in 100 mls @ ud IV .STK-MED ONE Sodium Chloride Confirm 11/02/20 19:30 Sodium Chloride 0.9% 1000 Ml Administered 11/02/20 19:31 Dose 1,000 mls @ ud .ROUTE .STK-MED ONE Lab/Rad Data: Laboratory Result Diagrams 11/02/20 19:20 11/02/20 19:20 Laboratory Results 11/02/20 11/02/20 11/02/20 Range/Units 22:18 22:00 21:33 WBC (4.0-10.5) K/mm3 RBC (4.1-5.6) M/mm3 Hgb (12.5-18.0) gm/dl Hct (42-50) % MCV (78-100) fl MCH (26-32) pg MCHC (32-36) g/dl RDW (11.5-14.0) % Plt Count (150-450) K/mm3 MPV (7.5-11.0) fl Gran % (36.0-66.0) % Eos # (Auto) (0-0.5) Absolute Lymphs (auto) (1.0-4.6) Absolute Monos (auto) (0.0-1.3) Lymphocytes % (24.0-44.0) % Monocytes % (0.0-12.0) % Eosinophils % (0.00-5.0) % Basophils % (0.0-0.4) % Absolute Granulocytes (1.4-6.9) Basophils # (0-0.4) Sodium (137-145) mmol/L Potassium (3.5-5.1) mmol/L Chloride (98-107) mmol/L Carbon Dioxide (22-30) mmol/L Anion Gap (5-15) MEQ/L BUN (9-20) mg/dL Creatinine (0.66-1.25) mg/dL Estimated GFR ML/MIN Glucose (74-106) mg/dL Lactic Acid 2.8 H (0.4-2.0) Calcium (8.4-10.2) mg/dL Total Bilirubin (0.2-1.3) mg/dL AST (17-59) U/L ALT (0-50) U/L Alkaline Phosphatase (38-126) U/L Troponin I 0.068 H* (0.000-0.034) ng/mL Serum Total Protein (6.3-8.2) g/dL Albumin (3.5-5.0) g/dL Lipase (23-300) U/L Urine Color (YELLOW) Urine Appearance (CLEAR) Urine pH (5-6) Ur Specific [place] (1.005-1.025) Urine Protein (Negative) Urine Ketones (NEGATIVE) Urine Blood (0-5) Oscar/ul Urine Nitrite (NEGATIVE) Urine Bilirubin (NEGATIVE) Urine Urobilinogen (0-1) mg/dL Ur Leukocyte Esterase (NEGATIVE) Urine WBC (Auto) (0-5) /HPF Urine RBC (Auto) (0-2) /HPF U Hyaline Cast (Auto) (0-2) /LPF U Epithel Cells (Auto) (FEW) /HPF Urine Bacteria (Auto) (NEGATIVE) /HPF Urine Culture Reflexed (NO) Urine Glucose (NEGATIVE) mg/dL Influenza Type A Ag NEGATIVE (NEGATIVE) Influenza Type B Ag NEGATIVE (NEGATIVE) RSV (PCR) NEGATIVE (Negative) SARS-CoV-2 (PCR) NEGATIVE (NEGATIVE) 11/02/20 11/02/20 11/02/20 Range/Units 19:30 19:20 19:20 WBC (4.0-10.5) K/mm3 RBC (4.1-5.6) M/mm3 Hgb (12.5-18.0) gm/dl Hct (42-50) % MCV (78-100) fl MCH (26-32) pg MCHC (32-36) g/dl RDW (11.5-14.0) % Plt Count (150-450) K/mm3 MPV (7.5-11.0) fl Gran % (36.0-66.0) % Eos # (Auto) (0-0.5) Absolute Lymphs (auto) (1.0-4.6) Absolute Monos (auto) (0.0-1.3) Lymphocytes % (24.0-44.0) % Monocytes % (0.0-12.0) % Eosinophils % (0.00-5.0) % Basophils % (0.0-0.4) % Absolute Granulocytes (1.4-6.9) Basophils # (0-0.4) Sodium 133 L (137-145) mmol/L Potassium 3.2 L (3.5-5.1) mmol/L Chloride 98 (98-107) mmol/L Carbon Dioxide 22 (22-30) mmol/L Anion Gap 16.7 H (5-15) MEQ/L BUN 36 H (9-20) mg/dL Creatinine 1.76 H (0.66-1.25) mg/dL Estimated GFR 39.2 ML/MIN Glucose 257 H (74-106) mg/dL Lactic Acid (0.4-2.0) Calcium 8.4 (8.4-10.2) mg/dL Total Bilirubin 0.50 (0.2-1.3) mg/dL AST 24 (17-59) U/L ALT 21 (0-50) U/L Alkaline Phosphatase 45 (38-126) U/L Troponin I 0.065 H* (0.000-0.034) ng/mL Serum Total Protein 6.0 L (6.3-8.2) g/dL Albumin 3.5 (3.5-5.0) g/dL Lipase 67 (23-300) U/L Urine Color (YELLOW) Urine Appearance (CLEAR) Urine pH (5-6) Ur Specific [place] (1.005-1.025) Urine Protein (Negative) Urine Ketones (NEGATIVE) Urine Blood (0-5) Oscar/ul Urine Nitrite (NEGATIVE) Urine Bilirubin (NEGATIVE) Urine Urobilinogen (0-1) mg/dL Ur Leukocyte Esterase (NEGATIVE) Urine WBC (Auto) (0-5) /HPF Urine RBC (Auto) (0-2) /HPF U Hyaline Cast (Auto) (0-2) /LPF U Epithel Cells (Auto) (FEW) /HPF Urine Bacteria (Auto) (NEGATIVE) /HPF Urine Culture Reflexed (NO) Urine Glucose (NEGATIVE) mg/dL Influenza Type A Ag NEGATIVE (NEGATIVE) Influenza Type B Ag NEGATIVE (NEGATIVE) RSV (PCR) (Negative) SARS-CoV-2 (PCR) (NEGATIVE) 11/02/20 11/02/20 11/02/20 Range/Units 19:20 19:19 19:15 WBC 10.2 (4.0-10.5) K/mm3 RBC 3.41 L (4.1-5.6) M/mm3 Hgb 11.0 L (12.5-18.0) gm/dl Hct 33.5 L (42-50) % MCV 98.2 (78-100) fl MCH 32.3 H (26-32) pg MCHC 32.8 (32-36) g/dl RDW 12.6 (11.5-14.0) % Plt Count 135 L (150-450) K/mm3 MPV 10.0 (7.5-11.0) fl Gran % 83.3 H (36.0-66.0) % Eos # (Auto) 0.02 (0-0.5) Absolute Lymphs (auto) 1.18 (1.0-4.6) Absolute Monos (auto) 0.47 (0.0-1.3) Lymphocytes % 11.6 L (24.0-44.0) % Monocytes % 4.6 (0.0-12.0) % Eosinophils % 0.2 (0.00-5.0) % Basophils % 0.3 (0.0-0.4) % Absolute Granulocytes 8.51 H (1.4-6.9) Basophils # 0.03 (0-0.4) Sodium (137-145) mmol/L Potassium (3.5-5.1) mmol/L Chloride (98-107) mmol/L Carbon Dioxide (22-30) mmol/L Anion Gap (5-15) MEQ/L BUN (9-20) mg/dL Creatinine (0.66-1.25) mg/dL Estimated GFR ML/MIN Glucose (74-106) mg/dL Lactic Acid 4.8 H (0.4-2.0) Calcium (8.4-10.2) mg/dL Total Bilirubin (0.2-1.3) mg/dL AST (17-59) U/L ALT (0-50) U/L Alkaline Phosphatase (38-126) U/L Troponin I (0.000-0.034) ng/mL Serum Total Protein (6.3-8.2) g/dL Albumin (3.5-5.0) g/dL Lipase (23-300) U/L Urine Color YELLOW (YELLOW) Urine Appearance CLEAR (CLEAR) Urine pH 5.0 (5-6) Ur Specific [place] 1.011 (1.005-1.025) Urine Protein NEGATIVE (Negative) Urine Ketones NEGATIVE (NEGATIVE) Urine Blood NEGATIVE (0-5) Oscar/ul Urine Nitrite NEGATIVE (NEGATIVE) Urine Bilirubin NEGATIVE (NEGATIVE) Urine Urobilinogen NEGATIVE (0-1) mg/dL Ur Leukocyte Esterase NEGATIVE (NEGATIVE) Urine WBC (Auto) NONE (0-5) /HPF Urine RBC (Auto) NONE (0-2) /HPF U Hyaline Cast (Auto) 0-2 (0-2) /LPF U Epithel Cells (Auto) NONE (FEW) /HPF Urine Bacteria (Auto) NONE (NEGATIVE) /HPF Urine Culture Reflexed NO (NO) Urine Glucose NEGATIVE (NEGATIVE) mg/dL Influenza Type A Ag (NEGATIVE) Influenza Type B Ag (NEGATIVE) RSV (PCR) (Negative) SARS-CoV-2 (PCR) (NEGATIVE) - Progress Progress: improved Progress Note: Patient reassessed. Symptoms improved. Antibiotics infused. Vital stable. Fever resolved. Acute renal injury observed. Likely from dehydration. IV fluids infused. Lactic acidosis improved. Case discussed with Dr. Devine who accepts admission to observation. Plan of care discussed with patient and daughter. They agree to admission [facility] for further evaluation and treatment. 11/03/20 06:49 11/03/20 06:50 Discussed with : Carlos Will see patient in: hospital (observation) Counseled pt/family regarding: lab results, diagnosis, rad results - Departure Clinical Impression: Diverticulitis, Anemia, Thrombocytopenia, Dehydration, Acute renal injury, Hyperglycemia, Fever, Lactic acidosis, Hiatal hernia, Hepatic cyst, Renal cyst, Nephrolithiasis, Generalized weakness Condition: Stable Critical Care Time: No
[2020-11-02] MEDS ORDERED: FLAGYL 500 MG IVPB 500 MG/100 ML BAG IV STA (21:53)
[2020-11-02] MEDS ORDERED: Levofloxacin 500MG/100ML D5W 500 MG/100 ML BAG IV STA (21:54)
[2020-11-02] MEDS ORDERED: Levofloxacin 500MG/100ML D5W 500 MG/100 ML BAG IV ONE (22:25)
[2020-11-02] MEDS ORDERED: FLAGYL 500 MG IVPB 500 MG/100 ML BAG IV ONE (22:25)
[2020-11-02 23:26] LABS: INFLUENZA A NEGATIVE (NEGATIVE); INFLUENZA B NEGATIVE (NEGATIVE); RESPIRATORY SYNCTIAL VIRUS NEGATIVE (Negative)
[2020-11-03] MEDS ORDERED: MORPHINE SULFATE 2 MG INJ IV PRN (01:28)
[2020-11-03] MEDS: TYLENOL 325 MG PO PRN ×2 (04:36→16:44)
[2020-11-03 04:51] LABS: Absolute Neutrophil Ct (ANC) 8.45 (1.4-6.9); BASOPHIL % 0.1 % (0.0-0.4); Basophil (Absolute #) 0.01 (0-0.4); Eosinophil % 1.3 % (0.00-5.0); Eosinophil (Absolute #) 0.14 (0-0.5); Hematocrit 35.6 % (42-50); Hemoglobin 11.5 gm/dl (12.5-18.0); Lymphocyte (Absolute #) 1.51 (1.0-4.6); Lymphocytes % 14.2 % (24.0-44.0); Mean Cell Volume 98.1 fl (78-100); Mean Corpuscular Hemoglobin 31.7 pg (26-32); Mean Corpuscular Hgb Concent. 32.3 g/dl (32-36); Mean Platelet Volume 10.1 fl (7.5-11.0); Monocyte (Absolute #) 0.53 (0.0-1.3); Neutrophil % 79.4 % (36.0-66.0); Platelet Count 140 K/mm3 (150-450); Red Blood Count 3.63 M/mm3 (4.1-5.6); Red Cell Distribution Width 12.6 % (11.5-14.0); White Blood Count 10.6 K/mm3 (4.0-10.5)
[2020-11-03 05:18] LABS: ALBUMIN 3.6 g/dL (3.5-5.0); ANION GAP 14.5 MEQ/L (5-15); BILIRUBIN,TOTAL 0.6 mg/dL (0.2-1.3); Calcium 8.7 mg/dL (8.4-10.2); Creatinine 1 1.62 mg/dL (0.66-1.25); EST GLOMERULAR FILTRATION RATE 43.2 ML/MIN; Potassium 3.4 mmol/L (3.5-5.1); Total Protein 6.4 g/dL (6.3-8.2)
[2020-11-03] MEDS: FLAGYL 500 MG IVPB 500 MG/100 ML BAG IV SCH ×3 (05:28→21:28)
[2020-11-03] MEDS: Sodium Chloride 0.9% 1000 ML 1,000 ML IV SCH ×2 (05:28→18:57)
[2020-11-03] MEDS ORDERED: NORCO 5/325 MG PO PRN (07:46)
[2020-11-03] MEDS ORDERED: HUMALOG SQ PRN (07:53)
[2020-11-03] MEDS ORDERED: PHARMACY DOSING REQUEST MC ONE (07:57)
--- NOTE | 2020-11-03 08:44 | XRAY ---
Indication: Abdomen pain, nausea, vomiting, and fever. Multiple contiguous axial images obtained through the abdomen and pelvis without contrast. Comparison: July 07, 2017. Lung bases demonstrate increasing subsegmental atelectasis/scarring with stable tiny right costophrenic angle calcified granuloma. No effusion. Heart is now borderline enlarged. Stable moderate-sized hiatal hernia with partial intrathoracic stomach. Noncontrasted stomach and bowel loops nonobstructed. There is again sigmoid diverticulosis with minimal wall thickening/stranding favoring mild/early diverticulitis. No free fluid/air. Stable large hepatic cysts, large bilateral renal cysts, nonobstructing subcentimeter right renal calculus, enlarged prostate gland, splenic calcified granulomas, and cholecystectomy. Remaining liver, pancreas, spleen, adrenal glands, kidneys, ureters, and bladder appear unremarkable for noncontrast exam. There remains moderate scattered vascular calcifications without AAA. Osseous structures intact again with osteopenia, moderate/advanced multilevel degenerative spondylosis, and minimal grade 1 L4 spondylolisthesis. Impression: 1. Again sigmoid diverticulosis with mild/early diverticulitis. No complications. 2. Stable hiatal hernia with partial intrathoracic stomach, hepatic cysts, bilateral renal cysts, nonobstructing right renal calculus, enlarged prostate, and chronic bony findings.
--- NOTE | 2020-11-03 08:48 | XRAY ---
Indication: Fever. Comparison: April 24, 2019. Portable apical lordotic chest again demonstrates CT proven minimal bibasilar subsegmental atelectasis/scarring, borderline cardiomegaly with left AICD, and hiatal hernia with partial intrathoracic stomach. No focal infiltrate, consolidation, or large effusion. Bony thorax intact again with osteopenia and degenerative changes. Impression: Nonacute chest with chronic features.
[2020-11-03] MEDS ORDERED: MEDICATION INTERVENTION MC SCH (09:15)
--- NOTE | 2020-11-03 09:37 | XRAY ---
Indication: Neck pain following fall. Comparison: None 4 view cervical spine demonstrates osteopenia, congenital C2-C3 fusion, mild/moderate multilevel degenerative disc space narrowing/endplate spurring, and heavy carotid calcifications left greater than right. No other bony, articular, or soft tissue abnormalities.
[2020-11-03] MEDS ORDERED: PROTONIX 40 MG IV IV SCH (10:00)
[2020-11-03] MEDS ORDERED: NON-FORMULARY ITEM (Famotidine [Pepcid] 40 MG) PO SCH (10:00)
[2020-11-03] MEDS ORDERED: NON-FORMULARY ITEM (Potassium Chloride [Potassium Chloride] 8 MEQ) PO SCH (10:00)
[2020-11-03] MEDS: Invanz 1 GM*** 1 G in Sodium Chloride 100ML MINI-BAG PLUS 100 ML IV SCH (11:15)
[2020-11-03] MEDS: Klor Con 10 MEQ PO SCH ×2 (11:18→20:26)
[2020-11-03] MEDS: Toprol Xl 100 MG PO SCH ×2 (11:18→20:25)
[2020-11-03] MEDS: Protonix 40MG Tablet PO SCH (11:18)
[2020-11-03] MEDS: Lasix 40 MG PO SCH ×2 (11:18→18:09)
[2020-11-03] MEDS: ELIQUIS 2.5 MG TABLET PO SCH ×2 (11:18→20:26)
[2020-11-03] MEDS: Pepcid 20 MG PO SCH (11:19)
[2020-11-03] MEDS: NYSTOP POWDER 15 GM TOP SCH ×2 (11:26→20:26)
[2020-11-03] MEDS: DELTASONE 10 MG PO SCH (11:33)
[2020-11-03] MEDS: DESYREL 50 MG PO SCH (21:28)
[2020-11-04] MEDS: Sodium Chloride 0.9% 1000 ML 1,000 ML IV SCH ×3 (03:21→20:04)
[2020-11-04] MEDS: FLAGYL 500 MG IVPB 500 MG/100 ML BAG IV SCH ×3 (05:01→21:08)
[2020-11-04 06:19] LABS: Absolute Neutrophil Ct (ANC) 5.65 (1.4-6.9); BASOPHIL % 0.3 % (0.0-0.4); Basophil (Absolute #) 0.02 (0-0.4); Eosinophil % 1.5 % (0.00-5.0); Hematocrit 31.8 % (42-50); Hemoglobin 10.5 gm/dl (12.5-18.0); Lymphocyte (Absolute #) 0.77 (1.0-4.6); Lymphocytes % 11.3 % (24.0-44.0); Mean Cell Volume 99.1 fl (78-100); Mean Corpuscular Hemoglobin 32.7 pg (26-32); Monocytes % 4.4 % (0.0-12.0); Neutrophil % 82.5 % (36.0-66.0); Platelet Count 113 K/mm3 (150-450); Red Blood Count 3.21 M/mm3 (4.1-5.6); Red Cell Distribution Width 12.6 % (11.5-14.0); White Blood Count 6.8 K/mm3 (4.0-10.5)
[2020-11-04 06:53] LABS: ALBUMIN 2.6 g/dL (3.5-5.0); ANION GAP 11.9 MEQ/L (5-15); BILIRUBIN,TOTAL 0.5 mg/dL (0.2-1.3); Calcium 7.6 mg/dL (8.4-10.2); Creatinine 1 1.27 mg/dL (0.66-1.25); EST GLOMERULAR FILTRATION RATE 57.2 ML/MIN; Potassium 3.1 mmol/L (3.5-5.1); Total Protein 4.9 g/dL (6.3-8.2)
[2020-11-04] MEDS: Pepcid 20 MG PO SCH (09:39)
[2020-11-04] MEDS: ZYLOPRIM 100 MG PO SCH (09:39)
[2020-11-04] MEDS: Klor Con 10 MEQ PO SCH ×2 (09:40→21:05)
[2020-11-04] MEDS: Lasix 40 MG PO SCH ×2 (09:40→17:31)
[2020-11-04] MEDS: Protonix 40MG Tablet PO SCH (09:40)
[2020-11-04] MEDS: NYSTOP POWDER 15 GM TOP SCH ×2 (09:41→21:05)
[2020-11-04] MEDS: Toprol Xl 100 MG PO SCH ×2 (09:41→21:05)
[2020-11-04] MEDS: ELIQUIS 2.5 MG TABLET PO SCH ×2 (09:41→21:04)
[2020-11-04] MEDS: Invanz 1 GM*** 1 G in Sodium Chloride 100ML MINI-BAG PLUS 100 ML IV SCH (09:47)
[2020-11-04] MEDS: DELTASONE 5 MG PO SCH (09:50)
[2020-11-04] MEDS ORDERED: TYLENOL 325 MG PO PRN (10:52)
[2020-11-04] MEDS: TYLENOL 325 MG PO PRN (12:19)
[2020-11-04] MEDS: DESYREL 50 MG PO SCH (21:05)
[2020-11-05] MEDS: FLAGYL 500 MG IVPB 500 MG/100 ML BAG IV SCH ×3 (05:33→21:03)
[2020-11-05 07:27] LABS: Hematocrit 33.7 % (42-50); Hemoglobin 11.1 gm/dl (12.5-18.0); Mean Cell Volume 98.5 fl (78-100); Mean Corpuscular Hemoglobin 32.5 pg (26-32); Mean Corpuscular Hgb Concent. 32.9 g/dl (32-36); Mean Platelet Volume 10.5 fl (7.5-11.0); Platelet Count 149 K/mm3 (150-450); Red Blood Count 3.42 M/mm3 (4.1-5.6); Red Cell Distribution Width 12.8 % (11.5-14.0); White Blood Count 7.6 K/mm3 (4.0-10.5)
[2020-11-05 07:49] LABS: BAND 4 % (0.0-2.0); Basophil 1 % (0.0-1.0); Eosinophil 2 % (0.00-3.0); Lymphocytes 18 % (24-44); Monocyte 6 % (0.0-12.0); Neutrophils 69 % (36.-66.); Platelet Estimate NORMAL (NORMAL); Total Cells Counted 100; Toxic Granulation 1+
[2020-11-05] MEDS: Klor Con 10 MEQ PO SCH ×4 (09:45→21:03)
[2020-11-05] MEDS: Invanz 1 GM*** 1 G in Sodium Chloride 100ML MINI-BAG PLUS 100 ML IV SCH (09:45)
[2020-11-05] MEDS: Protonix 40MG Tablet PO SCH (09:46)
[2020-11-05] MEDS: Pepcid 20 MG PO SCH (09:46)
[2020-11-05] MEDS: Toprol Xl 100 MG PO SCH ×2 (09:46→21:03)
[2020-11-05] MEDS: Lasix 40 MG PO SCH ×2 (09:46→16:45)
[2020-11-05] MEDS: DELTASONE 10 MG PO SCH (09:47)
[2020-11-05] MEDS: ELIQUIS 2.5 MG TABLET PO SCH ×2 (09:47→21:03)
[2020-11-05] MEDS: ZYLOPRIM 100 MG PO SCH (09:47)
[2020-11-05 09:48] LABS: ALBUMIN 2.9 g/dL (3.5-5.0); ALKALINE PHOSPHATASE 48 U/L (38-126); ANION GAP 11.3 MEQ/L (5-15); BLOOD UREA NITROGEN 19 mg/dL (9-20); CHLORIDE 105 mmol/L (98-107); Carbon Dioxide 26 mmol/L (22-30); Creatinine 1 1.19 mg/dL (0.66-1.25); EST GLOMERULAR FILTRATION RATE > 60.0 ML/MIN; Glucose 112 mg/dL (74-106); SGOT/AST 18 U/L (17-59); SGPT/ALT 16 U/L (0-50); SODIUM 139 mmol/L (137-145); Total Protein 5.6 g/dL (6.3-8.2)
[2020-11-05] MEDS: NYSTOP POWDER 15 GM TOP SCH ×2 (09:52→21:04)
[2020-11-05] MEDS: POTASSIUM CHLORIDE 20 mEq IN WATER 100ML 20 MEQ/100 ML BAG IV SCH ×2 (10:28→12:38)
[2020-11-05] MEDS: TYLENOL 325 MG PO PRN (11:46)
[2020-11-05] MEDS: Sodium Chloride 0.9% 1000 ML 1,000 ML IV SCH (15:08)
[2020-11-05] MEDS: DESYREL 50 MG PO SCH (21:03)
[2020-11-06 05:01] LABS: Hematocrit 30.2 % (42-50); Hemoglobin 9.8 gm/dl (12.5-18.0); Mean Cell Volume 99.3 fl (78-100); Mean Corpuscular Hemoglobin 32.2 pg (26-32); Mean Corpuscular Hgb Concent. 32.5 g/dl (32-36); Mean Platelet Volume 9.7 fl (7.5-11.0); Platelet Count 146 K/mm3 (150-450); Red Blood Count 3.04 M/mm3 (4.1-5.6); Red Cell Distribution Width 12.9 % (11.5-14.0); White Blood Count 6.2 K/mm3 (4.0-10.5)
[2020-11-06] MEDS: FLAGYL 500 MG IVPB 500 MG/100 ML BAG IV SCH (05:03)
[2020-11-06 05:35] LABS: ALBUMIN 2.6 g/dL (3.5-5.0); ANION GAP 7.1 MEQ/L (5-15); BILIRUBIN,TOTAL 0.3 mg/dL (0.2-1.3); Calcium 7.8 mg/dL (8.4-10.2); Creatinine 1 1.23 mg/dL (0.66-1.25); EST GLOMERULAR FILTRATION RATE 59.3 ML/MIN
[2020-11-06] MEDS: POTASSIUM CHLORIDE 20 mEq IN WATER 100ML 20 MEQ/100 ML BAG IV SCH ×2 (05:53→07:53)
[2020-11-06 06:53] LABS: BAND 2 % (0.0-2.0); Eosinophil 1 % (0.00-3.0); Lymphocytes 17 % (24-44); Monocyte 7 % (0.0-12.0); Neutrophils 73 % (36.-66.); Platelet Estimate NORMAL (NORMAL); Total Cells Counted 100; Toxic Granulation 1+
[2020-11-06] MEDS ORDERED: Magnesium 1 Gm / 100 Ml D5W*** 100 ML IV ONE (09:30)
[2020-11-06] MEDS: Lasix 40 MG PO SCH (09:36)
[2020-11-06] MEDS: Pepcid 20 MG PO SCH (09:36)
[2020-11-06] MEDS: Klor Con 10 MEQ PO SCH (09:36)
[2020-11-06] MEDS: Protonix 40MG Tablet PO SCH (09:37)
[2020-11-06] MEDS: ELIQUIS 2.5 MG TABLET PO SCH (09:37)
[2020-11-06] MEDS: Toprol Xl 100 MG PO SCH (09:37)
[2020-11-06] MEDS: NYSTOP POWDER 15 GM TOP SCH (09:38)
[2020-11-06] MEDS: ZYLOPRIM 100 MG PO SCH (09:38)
[2020-11-06] MEDS ORDERED: MAG-OX 400 PO SCH (10:00)
[2020-11-06] MEDS: TYLENOL 325 MG PO PRN (10:26)
[2020-11-06] MEDS: Invanz 1 GM*** 1 G in Sodium Chloride 100ML MINI-BAG PLUS 100 ML IV SCH (10:27)
[2020-11-06] MEDS: DELTASONE 5 MG PO SCH (10:29)
[2020-11-06 11:29] VITALS: BP 147/68; PULSE 62; O2SAT 90
--- NOTE | 2020-11-27 13:15 | HP ---
CHIEF COMPLAINT: Left lower quadrant pain in abdomen, fever and chills. HISTORY OF PRESENT ILLNESS: The patient is an 85 year-old white male patient who has general declining in condition over the past several months. He has developed a bit of a pressure sore on his sacrum for which he was started ciprofloxacin. He has had problems of increasing abdominal pain and presented to the emergency room where he was found to have acute diverticulitis. The patient was admitted to the hospital for further evaluation and management. 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 Hypertension, diabetes mellitus type II. He has previous history of prostate cancer. He has macular degeneration in the left eye. HOME MEDICATIONS: Currently include pantoprazole 40 mg a day, trazodone 100 mg at night, Plendil 10 mg at night, lisinopril 20 mg daily, Eliquis 2.5 mg b.i.d., Lasix 40 mg daily, Toprol XL100 mg b.i.d., potassium 8 mEq twice a day, famotidine 40 mg daily, prednisone 10 mg daily, metformin 500 mg daily, Nystatin powder. ALLERGIES: PENICILLIN. SULFA. PHYSICAL EXAMINATION: His vital signs on admission showed his temperature 101.4F, respiratory rate 22 and blood pressure 103/48. O2 saturation 93%. HEENT: Normocephalic, atraumatic. Pupils equal round reactive to light. Extraocular movements intact. Oropharynx slightly dry. NECK: Supple without lymphadenopathy, thyromegaly or JVD. CHEST: Clear to auscultation. HEART: Regular rate and rhythm. No significant murmurs, rubs or gallops heard. ABDOMEN: Tender in the left lower quadrant. No guarding or rebound was present. EXTREMITIES: Without cyanosis, clubbing or edema. NEUROLOGIC: The patient is alert and oriented x3. No focal deficits are noted. LAB DATA AND TESTS: The patient's CT scan of the abdomen and pelvis did reveal early diverticulitis. He was given IV fluids, morphine for pain, IV pantoprazole. In the emergency room he also received metronidazole and Levaquin IV initially. His lactic acid was slightly elevated at 2.8. Troponin 0.068 which is likely secondary to his dehydration and mild acute kidney injury. He was negative for influenza, RSV and COVID. His electrolytes sodium slightly low at 133, potassium 3.2, BUN 36, creatinine was up to 1.76. His white count was 10,200, hemoglobin 11.0 and PLT count 135,000. His UA was essentially normal with specific gravity 1.003, initial lactic acid was 4.8. ASSESSMENT: A patient with acute diverticulitis and mild acute kidney injury. He was admitted for IV antibiotics and IV fluids replacement. We will continue his usual home medications.
--- NOTE | 2020-11-28 12:51 | DS ---
DISCHARGE DIAGNOSES: 1) ACUTE DIVERTICULITIS. 2) MILD ACUTE KIDNEY INJURY. 3) DEHYDRATION. HOSPITAL COURSE: The patient is an 84 year-old white male patient who was brought into the emergency room after having developed fever, left lower quadrant abdominal pain. CT scan findings were positive for acute mild diverticulitis. The patient was given IV fluids and IV antibiotics Levaquin and metronidazole. He had been on ciprofloxacin at home for an early decubitus ulcer on his sacrum. The patient was admitted to the hospital and given the above medications. He did improve daily. There was some concern about him possibly needing to go rehab versus discharge home again. The patient was able to be changed over to oral medications by 11/06/2020 and was felt to be ready for discharge at this time. His white count had dropped to 6,200, hemoglobin 9.8 and down to 2 bands and 73 polys. His PLT count was 146,000. His glucose on discharge was 144 fasting. His BUN 19, creatinine was down to 1.23 much improved from his initial BUN and creatinine on admission. He had normal liver enzymes. His electrolytes were normal. His liver enzymes stayed within normal range throughout his stay. At this time the patient is felt to be ready to be discharged. He will go to rehab with Levaquin and Flagyl to continue for one week and follow up in my office in one week or sooner should he have any problems.
== END 2020-11-06 14:05 | DRG 392 ==
LOC: ED 18:42 → MED SURG 11-03 01:21 → OBSVTOIN 11-03 07:50
PROVIDERS: ADMIT Family Medicine; ATTEND Family Medicine
DX: K57.92 Diverticulitis of intestine, part unspecified, without perforation or abscess without bleeding (principal); N17.9 Acute kidney failure, unspecified; E87.2 Acidosis; D64.9 Anemia, unspecified; D69.6 Thrombocytopenia, unspecified; E86.0 Dehydration; R50.9 Fever, unspecified; K44.9 Diaphragmatic hernia without obstruction or gangrene; K76.89 Other specified diseases of liver; N28.1 Cyst of kidney, acquired; N20.0 Calculus of kidney; R53.1 Weakness; I10 Essential (primary) hypertension; Z79.899 Other long term (current) drug therapy; Z87.891 Personal history of nicotine dependence; Z20.828 Contact with and (suspected) exposure to other viral communicable diseases; E11.9 Type 2 diabetes mellitus without complications; G60.0 Hereditary motor and sensory neuropathy; L89.159 Pressure ulcer of sacral region, unspecified stage; Z79.01 Long term (current) use of anticoagulants
CPT/HCPCS: 0241U; 36000; 36415; 71045; 72040; 74176; 80053; 81001; 82947; 83605; 83690; 83735; 84132; 84145; 84484; 84550; 85025; 87040; 87400; 94660; 94760; 94762; 96365; 96367; 97161; 99285; G0398; 95806; J1335; J1817; J1956; J3475; J3480; A9270-GY